=== PATIENT | female | born 1945 | race Caucasian/White ===

== ENCOUNTER 2019-02-26 06:57 | Inpatient (IN) | payer MEDICARE, BC, OTHER ==
[~2019-02-26] VITALS: Ht 162.6 cm; Wt 121.1 kg
[2019-02-26] MEDS ORDERED: ALBUTEROL SULFATE 2.5 MG/0.5 ML INH NEB SOLN INH ONE (07:15)
[2019-02-26] MEDS ORDERED: IPRATROPIUM 0.5MG/ALBUTEROL 2.5MG INH SOL UD 3ML (DUONEB)(J7620) NEB ONE (07:15)
[2019-02-26] MEDS ORDERED: ONDANSETRON 4MG/2ML VIAL (J2405) IV ONE (07:15)
[2019-02-26] MEDS ORDERED: NS 1,000 ML IV ONE ×3 (07:15→09:15)
[2019-02-26] MEDS ORDERED: ANOR1AER INH (07:16)
[2019-02-26] MEDS ORDERED: ARNU1INH3 INH (07:16)
[2019-02-26] MEDS ORDERED: SUCR1TAB56 PO (07:16)
[2019-02-26] MEDS ORDERED: CLOP75TA2 PO (07:16)
[2019-02-26] MEDS ORDERED: ATEN50TA2 PO (07:16)
[2019-02-26] MEDS ORDERED: LOSA100T50 PO (07:16)
[2019-02-26] MEDS ORDERED: MONT10TA2 PO (07:16)
[2019-02-26] MEDS ORDERED: HYDR25TAB PO (07:16)
[2019-02-26] MEDS ORDERED: OMEP-218 PO (07:16)
[2019-02-26] MEDS ORDERED: ROSU10TA6 PO (07:16)
[2019-02-26] MEDS ORDERED: OXYC1TAB23 PO (07:16)
[2019-02-26 07:28] LABS: ABG BASE EXCESS 0.1 (-2.0-2.0); ABG HCO3 23.5 MEQ/L (22.0-26.0); ABG O2 SATURATION 96.2 % (95.0-99.0); ABG PARTIAL PRESSURE CO2 34.6 mmHg (35.0-45.0); ABG PARTIAL PRESSURE O2 87.1 mmHg (75.0-100.0); ABG STANDARD HCO3 24.5 MEQ/L (22.0-26.0); ABG TOTAL CO2 24.5 MEQ/L (23.0-31.0); ABG pH (ARTERIAL) 7.449 UNITS (7.350-7.450)
[2019-02-26] MEDS: fentaNYL 100 MCG/2 ML INJECTION (J3010) IV PRN ×2 (07:50→11:08)
--- NOTE | 2019-02-26 07:50 | REP ---
Portable chest, 07:17 a.m., single AP view with the patient upright: Comparison is 05/30/2014. There is chronic tenting of the right hemidiaphragm compatible with a pleural adhesion. There is minor atelectasis in the left costophrenic angle. The lung miramontes otherwise clear. Cardiac size is enlarged, however there has magnification from portable positioning. The leesa, mediastinum, skeletal structures are unremarkable. Impression: Minor atelectasis in the left costophrenic angle. 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 Cardiomegaly versus magnification from positioning. Electronically Signed by Ousmane Turner MD 02/26/2019 07:42 A
[2019-02-26 08:07] LABS: BASO % 0.2 % (0.0-1.0); HEMATOCRIT 45.4 % (36.0-47.0); HEMOGLOBIN 14.9 g/dl (12.0-15.5); LYMPH % 6.1 % (24.0-44.0); MEAN CORPUSCULAR HEMOGLOBIN 30.7 pg (27.0-33.0); MEAN CORPUSCULAR HGB CONC 32.8 g/dl (32.0-36.5); MEAN CORPUSCULAR VOLUME 93.4 fl (80.0-96.0); MONO # 0.7 10^3/uL (0.0-0.8); MONO % 4.1 % (0.0-5.0); NEUTROPHILS # 14.7 10^3/uL (1.8-7.7); NEUTROPHILS % 88.9 % (36.0-66.0); PLATELET COUNT, AUTOMATED 270 10^3/uL (150-450); RED BLOOD COUNT 4.86 10^6/uL (4.00-5.40); WHITE BLOOD COUNT 16.6 10^3/uL (4.0-10.0)
[2019-02-26 08:18] LABS: INR 1.03; PARTIAL THROMBOPLASTIN TIME 28.1 SECONDS (25.0-38.4); PROTHROMBIN TIME 13.2 SECONDS (11.8-14.0)
[2019-02-26] MEDS ORDERED: SIME125C4 PO (08:29)
[2019-02-26] MEDS ORDERED: ACET-897 PO (08:29)
[2019-02-26 08:30] LABS: ALBUMIN 3.8 GM/DL (3.2-5.2); ALT/SGPT 82 U/L (12-78); BILIRUBIN,TOTAL 3.4 MG/DL (0.2-1.0); CK-MB VALUE MASS 1.2 NG/ML (<3.6); CPK CREATINE PHOSPHOKINASE 49 U/L (26-192); FREE T4 1.23 NG/DL (0.76-1.46); LIPASE 141 U/L (73-393); MB/CK RELATIVE INDEX 2.45 (< OR =4); TOTAL PROTEIN 7.6 GM/DL (6.4-8.2); TROPONIN I < 0.02 NG/ML (< 0.10)
[2019-02-26] MEDS: MONTELUKAST 10 MG TAB PO SCH (09:00)
[2019-02-26] MEDS: ATENOLOL 50 MG TAB PO SCH (09:00)
[2019-02-26] MEDS: hydroCHLOROthiazide 25 MG TAB PO SCH (09:00)
[2019-02-26] MEDS: ROSUVASTATIN 10 MG TAB (CRESTOR) PO SCH (09:00)
[2019-02-26] MEDS: LOSARTAN 50 MG TAB PO SCH (09:00)
[2019-02-26] MEDS ORDERED: NS 700 ML IV ONE (09:15)
[2019-02-26] MEDS ORDERED: metroNIDAZOLE 500 MG in APPROPRIATE DILUENT 1 EA IV ONE (09:15)
[2019-02-26] MEDS ORDERED: CIPROFLOXACIN 400 MG in APPROPRIATE DILUENT 1 EA IV ONE (09:15)
--- NOTE | 2019-02-26 10:03 | REP ---
RIGHT UPPER QUADRANT ULTRASOUND: Real-time sonographic evaluation of the right upper quadrant was performed. Gallbladder is moderately distended. There is dependant mild sludge and possible tiny stones. The patient is tender at that location. There is trace pericholecystic fluid. Common bile duct is dilated and the intrahepatic bile ducts are mildly dilated. Common bile duct measures 11 mm. Liver demonstrates diffuse increased echotexture suggesting fibrofatty infiltration, with mild hepatomegaly, length in the mid clavicular line 19 cm. Pancreas is grossly unremarkable. Right kidney demonstrates no hydronephrosis with normal size 11 cm in length. IMPRESSION :Moderately dilated gallbladder with a small amount of intraluminal sludge and tiny stones. Mild pericholecystic fluid. Patent is tender at that location. In addition there is mild intrahepatic and extrahepatic biliary dilatation. Common bile duct measuring 11 mm. Findings are suspicious for cholecystitis. Diffuse fibrofatty infiltration of the liver with mild hepatomegaly. Electronically Signed by Ousmane Parra MD 03/02/2019 05:22 P
[2019-02-26] MEDS ORDERED: METOCLOPRAMIDE INJ 10MG/2ML VIAL (J2765) IV ONE (10:15)
[2019-02-26] MEDS ORDERED: MORPHINE 4 MG/ML 1ML VIAL/SYRINGE (J2270) IV PRN (11:15)
--- NOTE | 2019-02-26 11:25 | HPEPDOC ---
[facility] Medical History & Physical Date of Admission Feb 26, 2019 Date of Service: Feb 26, 2019 Primary Care Physician: A Attending Physician: CAROL CULVER MD History and Physical Time Service 10:30 AM CHIEF COMPLAINT: Abdominal pain HISTORY OF PRESENT ILLNESS: This is a 73-year-old female who presented with complaints of three-day induration mid left abdominal pain that radiates to the back. At its worst the pain as 10 out of 10 in severity after receiving medications in the ED the pain reduced to 5 out of 10 in severity. The pain is worsened by eating food; she last ate on Friday. Associated symptoms include nausea, non-bloody bilious emesis, and chills. She denies having fevers. The patient has a known history of gallstones and COPD. She had been working with her building cleaning supervisor to optimize her pulmonary status prior to elective surgery but came to day because of acute abdominal pain. PAST MEDICAL/ SURGICAL HISTORY: 1. COPD with chronic hypoxic respiratory failure. She is dependent on 3 L of oxygen at home. 2. History of gallstones and cholecystitis. 3 Status post tubal ligation. 4. Status post lithotripsy. 5. Status post tubal ligation. 6. Hypertension. 7. Left carotid artery stenosis SOCIAL HISTORY: Marital status: . Children: 4 Employment: Former nurse Tobacco use:, Former smoker, quit several years ago FAMILY HISTORY: Nephrolithiasis. Colon cancer ALLERGIES: Please see below. REVIEW OF SYSTEMS: 12 point review of systems negative except as listed in HPI HOME MEDICATIONS: Please see below. PHYSICAL EXAMINATION: VITAL SIGNS temperature 97.8 Fahrenheit, pulse 86, respiratory rate 30, blood pressure 148/68, pulse oximetry 88% on 3 L nasal cannula and later on improved to 92% while still on 3 L nasal cannula. GENERAL APPEARANCE: Obese, mildly anxious, slightly diaphoretic HEENT:. Extraocular movements intact, nasal cannula in place, lips slightly cyanotic. CARDIOVASCULAR: Regular rate and rhythm, no murmurs, rubs or gallops. LUNGS: The patient is able to speak full sentences without stopping to rest, is not using. Sensory muscles. There are Diminished breath sounds bilaterally, ABDOMEN: Abdomen is obese, there is no bruising, the abdomen is tender to palpation in the left knee region, Patterson sign is positive MUSCULOSKELETAL: Range of motion is intact 4 extremities SKIN: Slightly flushed NEUROLOGICAL: CN II-12 grossly intact, speech is not dysarthric. PSYCHIATRIC:, Alert and oriented 3, able to understand and follow commands. LABORATORY DATA: See below. IMAGING: Gallbladder ultrasound: shows a moderately dilated gallbladder with a small amount of intraluminal sludge and tiny stones sonographic Patterson sign is positive. CBD is 11 mm the findings are consistent with cholecystitis. Changes consistent with fatty liver and mild hepatomegaly are also noted. Chest x-ray shows atelectasis in the left costophrenic angle, tenting in the right hemidiaphragm compatible with a peripherally adhesion. There is also possible Cardiomegaly, which may also be due to malpositioning MICROBIOLOGY: Please see below. ASSESSMENT: Mrs. Jane is a 73-year-old female with a past medical history of oxygen dependent COPD, and multiple abdominal surgeries, who will be admitted to PCU for management of sepsis secondary to acute cholecystitis. . PLAN: 1. Sepsis secondary to acute cholecystitis. Sepsis criteria include an elevated WBC count and elevated lactic acid. Sonographic findings and liver function tests findings are consistent with acute cholecystitis. Q-SOFA score = 1 not high risk Plan: Continue with sepsis protocol/bundle including IV fluids, repeat lactic acid and antibiotics, surgery consult for laparoscopic cholecystectomy, nothing by mouth, GI consult for possible preoperative ERCP, follow-up blood cultures, we'll address CODE STATUS soon, after meds and morphine and IV form for pain control, Zofran for nausea 2. COPD with Oxygen-dependent respiratory failure. Plan: Continue supplemental oxygen, postoperatively will have low threshold for consulting pulmonology, continue home meds including 3. Chronic hypertension. Plan: Continue with losartan, hydrochlorothiazide and atenolol pending BMP 4 Carotid stenosis. Plan: hold Plavix DVT prophylaxis SCDs. Disposition pending clinical course Vital Signs Vital Signs Date Time Temp Pulse Resp B/P (MAP) Pulse Ox O2 Delivery O2 Flow Rate FiO2 02/26/19 11:08 18 92 3.0 02/26/19 07:09 02/26/19 06:57 97.8 86 Nasal Cannula Laboratory Data Labs 24H Laboratory Tests 2 02/26/19 07:17: Blood Gas Bicarbonate Standard 24.5, Arterial Blood pH 7.449, Arterial Blood Partial Pressure CO2 34.6L, Arterial Blood Partial Pressure O2 87.1, Arterial Blood Total CO2 24.5, Arterial Blood HCO3 23.5, Arterial Blood Base Excess 0.1, Arterial Blood Oxygen Saturation 96.2 02/26/19 07:41: Immature Granulocyte % (Auto) 0.7, White Blood Count 16.6H, Red Blood Count 4.86, Hemoglobin 14.9, Hematocrit 45.4, Mean Corpuscular Volume 93.4, Mean Corpuscular Hemoglobin 30.7, Mean Corpuscular Hemoglobin Concent 32.8, Red Cell Distribution Width 13.8, Platelet Count 270, Neutrophils (%) (Auto) 88.9H, Lymphocytes (%) (Auto) 6.1L, Monocytes (%) (Auto) 4.1, Eosinophils (%) (Auto) 0.0, Basophils (%) (Auto) 0.2, Neutrophils # (Auto) 14.7H, Lymphocytes # (Auto) 1.0L, Monocytes # (Auto) 0.7, Eosinophils # (Auto) 0.0, Basophils # (Auto) 0.0, Nucleated Red Blood Cells % (auto) 0.0, Prothrombin Time 13.2, Prothromb Time International Ratio 1.03, Activated Partial Thromboplast Time 28.1, Lactic Acid Level 4.4*H, Aspartate Amino Transf (AST/SGOT) 143H, Alanine Aminotransferase (ALT/SGPT) 82H, Alkaline Phosphatase 144H, Total Bilirubin 3.4H, Direct Bilirubin 2.0H, Total Creatine Kinase 49, Creatine Kinase MB 1.2, Creatine Kinase MB Relative Index 2.45, Troponin I < 0.02, Total Protein 7.6, Albumin 3.8, Albumin/Globulin Ratio 1.00, Lipase 141, Thyroid Stimulating Hormone (TSH) 1.620, Free Thyroxine 1.23 02/26/19 07:42: POC Glucose (Misc Panel) 182H, POC Sodium (Misc Panel) 133L, POC Potassium (Misc Panel) 3.6, POC Chloride (Misc Panel) 91L, POC Total CO2 (Misc Panel) 27.0, POC Blood Urea Nitrogen (Misc Panel 13, POC Ionized Calcium (Misc Panel) 4.4L, POC Creatinine (Misc Panel) 0.7, POC Hematocrit (Misc Panel) 46.0 02/26/19 09:18: Urine Color YELLOW, Urine Appearance HAZY, Urine pH 7.0, Urine Specific [place] 1.004, Urine Protein NEGATIVE, Urine Glucose (UA) NEGATIVE, Urine Ketones NEGATIVE, Urine Blood 1+H, Urine Nitrite NEGATIVE, Urine Bilirubin NEGATIVE, Urine Urobilinogen 0.2, Urine Leukocyte Esterase NEGATIVE, Urine WBC (Auto) 2, Urine RBC (Auto) 2, Urine Hyaline Casts (Auto) 0, Urine Bacteria (Auto) 1+H, Urine Squamous Epithelial Cells 1, Urine Mucus (Auto) SMALL, Urine Sperm (Auto) CBC/BMP Laboratory Tests 02/26/19 07:41 Red Blood Count 4.86, Mean Corpuscular Volume 93.4, Mean Corpuscular Hemoglobin 30.7, Mean Corpuscular Hemoglobin Concent 32.8, Red Cell Distribution Width 13.8, Neutrophils (%) (Auto) 88.9 H, Lymphocytes (%) (Auto) 6.1 L, Monocytes (%) (Auto) 4.1, Eosinophils (%) (Auto) 0.0, Basophils (%) (Auto) 0.2, Neutrophils # (Auto) 14.7 H, Lymphocytes # (Auto) 1.0 L, Monocytes # (Auto) 0.7, Eosinophils # (Auto) 0.0, Basophils # (Auto) 0.0 Microbiology Microbiology 02/26/19 Blood Culture, Received Pending 02/26/19 Blood Culture, Received Pending Home Medications Scheduled Atenolol (Atenolol) 50 Mg Tablet, 50 MG PO DAILY Clopidogrel Bisulfate (Clopidogrel) 75 Mg Tablet, 75 MG PO DAILY Fluticasone Furoate (Arnuity Ellipta) 200 Mcg Blst.w.dev, 1 PUFF INH QHS Hydrochlorothiazide (Hydrochlorothiazide) 25 Mg Tablet, 25 MG PO DAILY Losartan Potassium (Losartan Potassium) 100 Mg Tablet, 100 MG PO DAILY Montelukast Sodium (Montelukast Sodium) 10 Mg Tablet, 10 MG PO DAILY Omeprazole (Omeprazole) 20 Mg Capsule.dr, 20 MG PO DAILY Rosuvastatin Calcium (Rosuvastatin Calcium) 10 Mg Tablet, 10 MG PO DAILY Simethicone (Gas-X) 125 Mg Capsule, 250 MG PO QHS Sucralfate (Sucralfate) 1 Gm Tablet, 1 GRAM PO BID Umeclidinium Brm/Vilanterol Tr (Anoro Ellipta 62.5-25 Mcg INH) 1 Each Blst.w.dev, 1 PUFF INH DAILY Scheduled PRN Acetaminophen (Tylenol Extra Strength) 500 Mg Tablet, 500 MG PO QID PRN for PAIN Oxycodone HCl/Acetaminophen (Oxycodone-Acetaminophen 5-325) 1 Each Tablet, 1 TAB PO Q6H PRN for PAIN Allergies Coded Allergies: aspirin (Verified Allergy, Severe, anaphalaxis, 02/26/19) propofol (Verified Allergy, Unknown, 02/26/19) ceftriaxone (Verified Adverse Reaction, Intermediate, gall bladder attack, 02/26/19) A-FIB/CHADSVASC A-FIB History Current/History of A-Fib/PAF?: No Current PO Anticoag Therapy: No Treatment Reason Anticoagulant not given: Recent/upcomin procedure CAROL CULVER MD Feb 26, 2019 11:25
[2019-02-26 11:40] LABS: BLOOD UREA NITROGEN 14 MG/DL (7-18); CALCIUM LEVEL 9.8 MG/DL (8.8-10.2); CARBON DIOXIDE LEVEL 31 MEQ/L (21-32); CHLORIDE LEVEL 95 MEQ/L (98-107); CREATININE FOR GFR 0.94 MG/DL (0.55-1.30); GLOMERULAR FILTRATION RATE > 60.0 (>39); GLUCOSE, FASTING 178 MG/DL (70-100); PHOSPHORUS LEVEL 3.5 MG/DL (2.5-4.9); POTASSIUM SERUM 3.8 MEQ/L (3.5-5.1); SODIUM LEVEL 135 MEQ/L (136-145)
[2019-02-26] MEDS ORDERED: ACETAMINOPHEN 650 MG SUPP PR PRN (12:00)
[2019-02-26] MEDS ORDERED: NS 1,000 ML IV SCH (12:00)
[2019-02-26 12:24] VITALS: BP 163/74
[2019-02-26] MEDS ORDERED: ACETAMINOPHEN *IV* 1,000 MG in APPROPRIATE DILUENT 1 EA IV ONE (13:00)
[2019-02-26 13:49] VITALS: BP 153/73
[2019-02-26] MEDS: hydrALAZINE INJ 20 MG/ML VIAL IV SCH ×3 (13:51→21:53)
[2019-02-26] MEDS: NS 3,500 ML IV SCH ×2 (13:51→20:36)
[2019-02-26] MEDS ORDERED: HEPARIN SOD (PORCINE) 5000 UNITS/ML VIAL SC SCH (14:00)
[2019-02-26 16:00] VITALS: BP 141/63
[2019-02-26 20:00] VITALS: BP 129/60
[2019-02-26] MEDS: CIPROFLOXACIN 400 MG in APPROPRIATE DILUENT 1 EA IV SCH (20:37)
[2019-02-26] MEDS: ONDANSETRON 4MG/2ML VIAL (J2405) IV PRN (21:53)
[2019-02-26 22:00] VITALS: BP 139/79
[2019-02-27] VITALS (14 sets, daily range): BP systolic 114–149; BP diastolic 59–83
[2019-02-27] MEDS: fentaNYL 100 MCG/2 ML INJECTION (J3010) IV PRN ×2 (00:34→16:03)
[2019-02-27] MEDS: NS 3,500 ML IV SCH (02:21)
[2019-02-27] MEDS: hydrALAZINE INJ 20 MG/ML VIAL IV SCH ×2 (04:00→09:44)
[2019-02-27 04:47] LABS: HEMATOCRIT 39.5 % (36.0-47.0); MEAN CORPUSCULAR HEMOGLOBIN 30.4 pg (27.0-33.0); MEAN CORPUSCULAR HGB CONC 32.9 g/dl (32.0-36.5); MEAN CORPUSCULAR VOLUME 92.3 fl (80.0-96.0); PLATELET COUNT, AUTOMATED 225 10^3/uL (150-450); RED BLOOD COUNT 4.28 10^6/uL (4.00-5.40); WHITE BLOOD COUNT 16.1 10^3/uL (4.0-10.0)
[2019-02-27 05:11] LABS: ALT/SGPT 81 U/L (12-78); BILIRUBIN,TOTAL 3.5 MG/DL (0.2-1.0); BLOOD UREA NITROGEN 10 MG/DL (7-18); CALCIUM LEVEL 8.4 MG/DL (8.8-10.2); CARBON DIOXIDE LEVEL 24 MEQ/L (21-32); CHLORIDE LEVEL 104 MEQ/L (98-107); GLOMERULAR FILTRATION RATE > 60.0 (>39); GLUCOSE, FASTING 121 MG/DL (70-100); POTASSIUM SERUM 3.6 MEQ/L (3.5-5.1); SODIUM LEVEL 137 MEQ/L (136-145); TOTAL PROTEIN 6.9 GM/DL (6.4-8.2)
[2019-02-27] MEDS: ATENOLOL 50 MG TAB PO SCH (09:00)
[2019-02-27] MEDS ORDERED: NS 1,000 ML IV SCH (09:00)
[2019-02-27] MEDS: LOSARTAN 50 MG TAB PO SCH (09:00)
[2019-02-27] MEDS: MONTELUKAST 10 MG TAB PO SCH (09:00)
[2019-02-27] MEDS: ROSUVASTATIN 10 MG TAB (CRESTOR) PO SCH (09:00)
[2019-02-27] MEDS: hydroCHLOROthiazide 25 MG TAB PO SCH (09:00)
--- NOTE | 2019-02-27 09:27 | ECGEPIP ---
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
[2019-02-27] MEDS: CIPROFLOXACIN 400 MG in APPROPRIATE DILUENT 1 EA IV SCH ×2 (09:44→21:57)
[2019-02-27] MEDS: ONDANSETRON 4MG/2ML VIAL (J2405) IV PRN (09:44)
[2019-02-27] MEDS ORDERED: FUROSEMIDE 20 MG/2 ML VIAL (J1940) IV ONE (10:00)
[2019-02-27] MEDS ORDERED: FUROSEMIDE 40 MG/4 ML VIAL (J1940) IV ONE (10:00)
[2019-02-27 11:41] LABS: CPK CREATINE PHOSPHOKINASE 55 U/L (26-192); MB/CK RELATIVE INDEX 3.64 (< OR =4); TROPONIN I 0.36 NG/ML (< 0.10)
--- NOTE | 2019-02-27 13:30 | CR ---
DATE OF CONSULTATION: 02/27/2019 CHIEF COMPLAINT: Abdominal pain. HISTORY OF PRESENT ILLNESS: Ms. Jane is a 73-year female with a past medical history of chronic obstructive pulmonary disease (COPD) with chronic hypoxemic respiratory failure, obstructive sleep apnea (VINNY) not on C-PAP, hypertension, and left carotid artery stenosis who presented with complaints of abdominal pain for the past few days associated with nausea and some vomiting, nonbloody and nonbilious, and chills. The patient reports the pain is worsened by eating food. She denied noticing any fevers at home. She denied any chest pain, any increased shortness of breath. No wheezing. She does have a chronic cough which she reports is unchanged currently. The patient has a previous history of gallstones with cholecystitis and a previous admission for it. She was following up with surgery as an outpatient for an outpatient elective cholecystectomy. The patient follows with pulmonary at our clinic with Dr. Ariza. At a previous visit, she had pulmonary function testing done which showed some nonspecific airflow limitation with mild reduction in FEV-1 and severe reduction in her diffusing capacity. She was optimized from a pulmonary standpoint to proceed with the procedure. Since her admission, the patient has been started on antibiotics with ciprofloxacin. She has received IV pain medication as well as Zofran for her nausea. The patient was also given IV fluids and her hypertensive and oral medications were on hold as she is strict nothing by mouth (n.p.o.). The patient's blood pressure has been elevated and she has been getting hydralazine IV every 6 hours. She reports that she continues to have the abdominal pain more in the right upper quadrant as well as some nausea. She also noted increasing lower extremity edema for which she usually takes hydrochlorothiazide as well as Lasix as needed occasionally for the edema. PAST MEDICAL HISTORY/PAST SURGICAL HISTORY: COPD with chronic hypoxemic respiratory failure on 3 liters nasal cannula. morbid obesity. VINNY not on C-PAP. history of tubal ligation. history of nephrolithiasis status post lithotripsy. Hypertension. Left carotid artery stenosis. HOME MEDICATIONS: - atenolol - Plavix - Arnuity - hydrochlorothiazide - losartan - Singulair - omeprazole - rosuvastatin - sucralfate - Anoro - Percocet p.r.n. - Tylenol p.r.n. ALLERGIES: - ASPIRIN - PROPOFOL - CEFTRIAXONE SOCIAL HISTORY: The patient is a retired nurse. She is a former smoker, quit several years ago. FAMILY HISTORY: History of colon cancer and nephrolithiasis. PHYSICAL EXAMINATION: Temperature 99.2, pulse 91, respirations 20, blood pressure 149/83, and O2 sat 92% on 3 liters of nasal cannula. General: The patient is a morbidly obese female who is lying in bed in no acute respiratory distress. She is not using any accessory muscles for respirations. HEENT: Normocephalic, atraumatic. Moist mucous membranes. Neck is supple. Trachea is midline. Unable to appreciate jugular venous distention (JVD) due to body habitus. Cardiovascular: Regular rate and rhythm. Normal S1 and S2, distant heart sounds. Unable appreciate any murmurs. Pulmonary: Decreased breath sounds bilaterally with some rare crackles at the bases. No wheezes or rhonchi. Abdomen is obese, soft, Tender to palpation in the right upper quadrant. Lower Extremities: There is some mild pitting lower extremity edema bilaterally. LABORATORY DATA: WBC 16.1, hemoglobin 13.0, platelets 225. Chemistry: Sodium was 137, potassium 3.6, chloride is 104, bicarb 24, BUN 10, creatinine 0.70, glucose is 121. Lactic acid on admission was 4.4, repeat trended down to 1.3 today. Total bili elevated at 3.5. AST and ALT are elevated, but trending down at 63 and 81 respectively. Alkaline phosphatase is 138. Initial troponin was negative. Repeat troponin was 0.36. ABG on admission - pH 7.449, pCO2 of 34.6 and pO2 of 87.1. IMAGES: Chest x-ray on admission showed chronic tenting of the right diaphragm and some atelectasis at the bases with possible mild pulmonary vascular congestion. Gallbladder ultrasound showed moderate dilation of the gallbladder with some sludge and small stones. There is some pericholecystic fluid and some mild intrahepatic and extrahepatic biliary ductal dilation. The common bile duct is also 1.1 cm. There is some fatty liver infiltration. ASSESSMENT/PLAN: Ms. Jane is a 73-year-old female with a past medical history of COPD with chronic hypoxemic respiratory failure on 3 liters nasal cannula, VINNY not on C-PAP, history of hypertension, history of left carotid artery stenosis, and history of cholecystitis in the past who presents with abdominal pain, nausea and vomiting. The patient was found to have acute choledocholithiasis and sepsis secondary to her choledocholithiasis. The patient has been evaluated by GI and surgery with a plan for ERCP with a sphincterotomy and then once her sepsis and liver functions improve with likely cholecystectomy. For her history of COPD, the patient is on triple inhaler maintenance therapy with Anoro and Arnuity. She is also on Singulair. Her last pulmonary function testing appeared unchanged from previous with some mild nonspecific airflow limitation and severe impairment in her diffusing capacity. The patient is currently at her baseline oxygen saturation and she denies any increased wheezing. No increased chest pain or shortness of breath. From a pulmonary standpoint, she is optimized for her surgical procedure. She does have a history of VINNY however and has not been on C-PAP. Given her morbid obesity and her chronic hypoxemia, suspect some of it is also due to untreated VINNY possibly OHS. - For general anesthesia and intubation, would extubate the patient when she is fully awake and alert. Can also consider extubating her to C-PAP or BiPap. - The patient has been receiving IV fluids as she is n.p.o. and she has been having her diuretics on hold and she notes increased lower extremity edema as well as being hypertensive. Will give her a dose of Lasix 20 mg IV and will place a [place] for more accurate measurement of her ins and outs. - The patient EKG was noted to have some ST depressions which appear chronic. However given history of her carotid artery stenosis as well as on previous CTs evidence of coronary artery calcifications, we repeated her troponins, which did show evidence of some mild demand ischemia, likely in the setting of her sepsis and possibly also with her fluid overload. The patient's Plavix has been on hold for her procedure and she has a reported allergy to aspirin. - Cardiology has been consulted for preoperative clearance. Will follow up their recommendations. - Continue antibiotics as per the primary team. - will restart her home inhalers while inpatient with Advair and Spiriva with albuterol p.r.n. as needed. DVT prophylaxis with heparin. Full code. MTDD
[2019-02-27] MEDS: ALBUTEROL SULFATE 2.5 MG/0.5 ML INH NEB SOLN NEB SCH ×3 (13:46→20:00)
[2019-02-27] MEDS: LIDOCAINE 5% (LIDODERM) PATCH TD SCH (13:53)
[2019-02-27] MEDS: NYSTATIN 100,000 UNITS/GM TOPICAL PWD 15 GM TOP SCH (13:54)
[2019-02-27] MEDS: METOPROLOL 5 MG/5 ML VIAL IV SCH ×2 (13:54→21:02)
[2019-02-27] MEDS: ADVAIR HFA 230/21MCG INHALER INH SCH ×2 (13:56→20:00)
[2019-02-27] MEDS: TIOTROPIUM INHALER/CAPSULE (SPIRIVA) INH SCH (13:57)
--- NOTE | 2019-02-27 14:20 | ECGEPIP ---
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
--- NOTE | 2019-02-27 15:00 | CR ---
DATE OF CONSULTATION: 02/27/2019 REFERRING PHYSICIAN: Dr. Espinoza INDICATION: Preoperative clearance for emergency ERCP. HISTORY OF PRESENT ILLNESS: Mrs. Guzmán is previously unknown to me. She is a pleasant 73-year-old, morbidly obese female, who has history of chronic obstructive pulmonary disease (COPD) and has been oxygen dependent for several years. She presented to [facility] with cholangitis and was found to have obstructed biliary system. She continues to be quite symptomatic and there was a plan to pursue ERCP or percutaneous drainage of her gallbladder. I was asked to see her for cardiac clearance because her cardiac enzymes were marginally elevated and there were precordial ST-segment depressions on her ECG. At bedside the patient tells me that she is still very uncomfortable. She started having symptoms a little more than 48 hours ago and then her condition improved slightly with conservative management but as of today she deteriorated further. She admits having rather diffuse abdominal discomfort that is by far the most severe in the right upper quadrant but denies any chest discomfort. She tells me that her shortness of breath is not much different compared to her baseline. She denies any history of coronary artery disease. She recalls that she had stress test many years ago but has not had any cardiac evaluation since. At her baseline she is ambulating around the house, does some light housework including cooking and he is able to walk to her car which is about 50 feet. She is limited by dyspnea. She denies any history of chest discomfort or congestive heart failure. PAST MEDICAL HISTORY: 1. Morbid obesity. 2. History of chronic obstructive pulmonary artery disease (COPD), quit smoking in 2002. She is dependent on 3 liters of oxygen by nasal cannula continuously. 3. Hypertension. 4. History of left carotid artery stenosis. She has been followed by vascular surgeon from [place] and reports stenosis of approximately 60% degree for more than a decade. 5. Recurrent cholecystitis. SURGICAL HISTORY: Positive for lithotripsy and tubal ligation. SOCIAL HISTORY: The patient is . She is a mother of four children. Is a retired nurse. She used to smoke but quit in 2002. She denies excessive alcohol use. FAMILY HISTORY: Positive for colon cancer and nephrolithiasis. ALLERGIES: She reports allergies to ASPIRIN that causes anaphylaxis, CEFTRIAXONE and PROPOFOL. Based on my history I am not convinced that the allergy to propofol is real. REVIEW OF SYSTEMS: She does admit to chills, fever, nausea, vomiting, abdominal pain. She denies any chest pain, palpitations, syncope and near-syncope, history of stroke, history of excessive bleeding complications. The rest of review of systems as per history of present illness or otherwise negative. PHYSICAL EXAMINATION: Mrs. Guzmán is a morbidly obese pleasant white female. She appears to be in no distress currently in intensive care unit (ICU) bed in completely horizontal position. Blood pressure last documented was 115/80, heart rate in 90s, sinus rhythm, currently afebrile. Saturation 92-94% on 3 liters of oxygen by nasal cannula. Her weight is documented as 123 kg. Her jugular venous pulse (JVP) does not look high by my physical examination, I do not appreciate carotid bruit. Lungs are clear to auscultation bilaterally without wheezing, crackles or rhonchi. Heart: Exam reveals somewhat difficult to appreciate precordial impulse due to her body habitus but her heart rate is regular. I do not appreciate any murmur, gallop or rub. Abdomen is diffusely tender but soft. No distinct guarding other than mildly in right upper quadrant. Bowel sounds are decreased. Extremities are free of significant edema. Peripheral pulses are easily palpable on both ankles. Neurologically she is intact. LABORATORY: Basic metabolic panel as of early this morning was normal but for glucose 121, lactic acid on admission was elevated 4.4, but has normalized by this morning, bilirubin 3.4 on admission is 3.5 this morning, AST 63, ALT 181, alkaline phosphatase 138, CK and CK-MB have been consistently negative but troponin that was yesterday 0.02 is 0.36 as of this morning. INR was 1.0 and CBC is normal but for WBC count 16.1. Urinalysis is 1+ positive for blood. Chest x-ray is portable study somewhat limited by her size but besides questionable cardiomegaly and some mildly elevated right hemidiaphragm I do not appreciate any convincing congestive heart failure or infiltrate. ECG reveals presence of sinus rhythm, is suggestive of LVH and there are occasional PVCs and ST-segment depressions. The patient brought old ECGs from her prior hospitalization in outside hospital and the ST-segment depressions were present already then. ASSESSMENT AND PLAN: Mrs. Guzmán is a 73-year-old female who comes with biliary sepsis and has mildly elevated troponin and nonspecific repolarization abnormalities on ECG without having chest discomfort. I do not doubt that she has coronary artery disease, she does have multiple risk factors including peripheral vascular disease, but in this setting I think she is better off proceeding with ERCP because otherwise she has high risk of difficult to treat sepsis and resulting potential complications including . Her blood pressure is now much improved. She has been off her outpatient medications for several days and received single dose of IV hydralazine earlier today which was a very high dose of 25 mg. I think it would be more appropriate to give her low-dose beta blockers either metoprolol which I ordered or potentially even labetalol if she is very hypertensive and we can use additional hydralazine only as needed. She did receive single dose of furosemide earlier today and has had very good diuretic response. Unfortunately I do not believe that she can receive aspirin because her description of allergy is suggestive of anaphylaxis precluding its use. Also considering the need for the procedure she is not a good candidate for Plavix on Brilinta. Hopefully she will tolerate the procedure well and we will continue monitoring in intensive care postoperatively. I had a discussion with her and her and two daughters present at bedside explaining that even though there are risks to the procedure it is my opinion that not proceeding with the procedure carries actually higher risk. I also spoke with Dr. Ortiz and Dr. Sweet. JUSTIN
--- NOTE | 2019-02-27 15:19 | IPNPDOC ---
Subjective Date Seen The patient was seen on 02/27/19. Time of service 9:45 AM Subjective Chief Complaint/HPI The patient reports that her abdominal pain is still pretty severe. She has been nothing by mouth after midnight for possible surgery today. Per discussion with nursing staff. The patient has been complaining of back pain Objective Physical Examination Other physical findings GENERAL APPEARANCE: well nourished, well developed, anxious HEENT: Extraocular movements intact, nasal cannula in place CARDIOVASCULAR: Regular rate and rhythm, no murmurs, rubs or gallops. LUNGS: The patient is able to speak full sentences without stopping to rest, is not using. Sensory muscles. There are Diminished breath sounds bilaterally, ABDOMEN: Abdomen is obese, there is no bruising, Patterson sign is positive MUSCULOSKELETAL: Range of motion is intact 4 extremities SKIN: Slightly flushed NEUROLOGICAL: CN II-12 grossly intact, speech is not dysarthric. PSYCHIATRIC: Alert and oriented 3, able to understand and follow commands. Assessment /Plan Assessment 1. Sepsis secondary to acute cholecystitis/ choledocolithasis - improving -We completed the sepsis protocol -Lactic acid has trended down Plan: nothing by mouth pending preoperative ERCP and laparoscopic cholecystectomy possibly today, continue with IV fluids, fentanyl, IV Zofran, and ciprofloxacin. 2. COPD with Oxygen-dependent respiratory failure. Dependent on 3 L oxygen at home Plan: Continue supplemental oxygen, appreciate pulmonary's input. 3. Elevated troponins, likely secondary to sepsis - troponins and EKG reports reviewed. Plan consult cardiology for perioperative evaluation. 5. Chronic hypertension Plan: Home meds on hold. IV hydralazine when necessary has been ordered. 6Carotid stenosis. Plan: hold Plavix DVT prophylaxis with SCDs. Disposition pending clinical course. Plan/VTE VTE Prophylaxis Ordered?: No VTE Exclusion Mechanical Proph: Other (scheduled for surgery) VS, I&O, 24H, Fishbone Vital Signs/I&O Vital Signs Date Time Temp Pulse Resp B/P (MAP) Pulse Ox O2 Delivery O2 Flow Rate FiO2 02/27/19 13:54 112 114/59 02/27/19 08:00 99.2 20 92 Nasal Cannula 3.0 I&O- Last 24 Hours up to 6 AM 02/27/19 06:00 Intake Total 4320 ml Output Total 1475 ml Balance 2845 ml Laboratory Data 24H LABS Laboratory Tests 2 02/26/19 17:48: Bedside Glucose (Misc Panel) 142H 02/27/19 04:15: Nucleated Red Blood Cells % (auto) 0.0, Anion Gap 9, Glomerular Filtration Rate > 60.0, Lactic Acid Level 1.3, Blood Urea Nitrogen 10, Creatinine 0.70, Sodium Level 137, Potassium Level 3.6, Chloride Level 104, Carbon Dioxide Level 24, Calcium Level 8.4L, Aspartate Amino Transf (AST/SGOT) 63H, Alanine Aminotransferase (ALT/SGPT) 81H, Total Creatine Kinase 55, Alkaline Phosphatase 138H, Total Bilirubin 3.5H, Total Protein 6.9, Albumin 3.0#L, Creatine Kinase MB 2.0, Creatine Kinase MB Relative Index 3.64, Troponin I 0.36#H, Albumin/Globulin Ratio 0.77L CBC/BMP Laboratory Tests 02/27/19 04:15 Red Blood Count 4.28, Mean Corpuscular Volume 92.3, Mean Corpuscular Hemoglobin 30.4, Mean Corpuscular Hemoglobin Concent 32.9, Red Cell Distribution Width 14.3, Calcium Level 8.4 L, Aspartate Amino Transf (AST/SGOT) 63 H, Alanine Aminotransferase (ALT/SGPT) 81 H, Total Creatine Kinase 55, Alkaline Phosphatase 138 H, Total Bilirubin 3.5 H, Total Protein 6.9, Albumin 3.0 #L Microbiology Microbiology 02/26/19 Blood Culture - Preliminary, Resulted No growth after 24 hours . All specim... 02/26/19 Blood Culture - Preliminary, Resulted No growth after 24 hours . All specim... CAROL CULVER MD Feb 27, 2019 15:19
[2019-02-27] MEDS ORDERED: ISOVUE-300 61% 50ML VIAL (Q9967) As Ordered ONE (19:06)
[2019-02-27] MEDS ORDERED: fentaNYL 100 MCG/2 ML INJECTION (J3010) As Ordered ONE (20:37)
[2019-02-27] MEDS ORDERED: dexameTHASONE 4 MG/ML 1ML VIAL (J1100) As Ordered ONE (20:37)
[2019-02-27] MEDS ORDERED: MIDAZOLAM INJ 2 MG/2 ML VIAL (J2250) As Ordered ONE (20:37)
[2019-02-27] MEDS ORDERED: LIDOCAINE 2% INJ 100 MG/5 ML SDV (FOR ANES.) As Ordered ONE (20:37)
[2019-02-27] MEDS ORDERED: PHENYLephrine HCL 500 MCG/5 ML (100MCG/ML) SYRINGE (J2370) As Ordered ONE (20:37)
[2019-02-27] MEDS ORDERED: ROCURONIUM BROMIDE 50 MG/5 ML VIAL As Ordered ONE (20:37)
[2019-02-27] MEDS ORDERED: ETOMIDATE INJ 20MG/10ML VIAL As Ordered ONE (20:37)
[2019-02-27] MEDS ORDERED: SUGAMMADEX SODIUM 500 MG/5 ML VIAL (BRIDION) As Ordered ONE (20:37)
[2019-02-27] MEDS ORDERED: ONDANSETRON 4MG/2ML VIAL (J2405) As Ordered ONE ×2 (20:37→21:03)
[2019-02-27] MEDS ORDERED: fentaNYL 100 MCG/2 ML INJECTION (J3010) IV PRN (20:45)
[2019-02-27] MEDS ORDERED: MORPHINE 10 MG/ML 1ML VIAL (J2270) IV PRN (20:45)
[2019-02-27] MEDS ORDERED: PERCOCET 5MG/325MG TAB PO PRN (20:45)
[2019-02-27] MEDS ORDERED: ONDANSETRON 4MG/2ML VIAL (J2405) IV PRN (20:45)
[2019-02-27] MEDS ORDERED: LR 1,000 ML IV SCH (20:45)
[2019-02-27] MEDS ORDERED: ACETAMINOPHEN 1000MG 100ML IV BTL (OFIRMEV) (J0131 PER 10MG) As Ordered ONE (20:52)
--- NOTE | 2019-02-27 20:59 | ROOR ---
Patient Name: Trena Guzmán Procedure Date: 02/27/2019 7:03 PM Date of : 1945 Age: 73 Room: Main OR Note Status: Finalized Procedure: ERCP + Papillotomy + Balloon Sweep + Stent Indications: Abdominal pain of suspected biliary origin, Biliary dilation on Ultrasound, Elevated liver enzymes Providers: Jp Sweet MD Referring MD: Juju Espinoza Md Requesting Provider: Medicines: General Anesthesia Complications: No immediate complications. Procedure: Pre-Anesthesia Assessment: - The heart rate, respiratory rate, oxygen saturations, blood pressure, adequacy of pulmonary ventilation, and response to care were monitored throughout the procedure. The Duodenoscope was introduced through the mouth, and advanced to the duodenum and used to inject contrast into the bile duct. The ERCP was accomplished without difficulty. The patient tolerated the procedure well. Findings: The upper GI tract was traversed under direct vision without detailed examination. The major papilla was normal. The bile duct was deeply cannulated with the short-nosed traction sphincterotome. Contrast was injected. I personally interpreted the bile duct images. Ductal flow of contrast was adequate. Image quality was adequate. Contrast extended to the entire biliary tree. The lower third of the main bile duct and middle third of the main bile duct contained filling defect(s) thought to be a stone and sludge. Choledocholithiasis was found in a nondilated duct. A short 0.035 inch Soft Jagwire was passed into the biliary tree. Biliary sphincterotomy was made with a monofilament traction (standard) sphincterotome using ERBE electrocautery. There was no post-sphincterotomy bleeding. The biliary tree was swept with a 12 mm balloon starting at the bifurcation. Sludge was swept from the duct. All stones were removed. One 10 Fr by 7 cm plastic stent with a single external flap and a single internal flap was placed into the common bile duct. Bile flowed through the stent. The stent was in good position. Impression: - A filling defect consistent with a stone and sludge was seen on the cholangiogram. - Choledocholithiasis was found. Complete removal was accomplished by biliary sphincterotomy and balloon extraction. - A biliary sphincterotomy was performed. - The biliary tree was swept. - One plastic stent was placed into the common bile duct. - The examination was otherwise normal. Recommendation: - Avoid aspirin and nonsteroidal anti-inflammatory medicines for 2 weeks. - Continue present medications. - [facility]. - Watch for pancreatitis, bleeding, perforation, and cholangitis. - The findings and recommendations were discussed with the patient's family. - The findings and recommendations were discussed with the surgeon. Jp Sweet MD Jp Sweet MD 02/27/2019 8:58:31 PM Electronically signed by Jp Sweet MD Number of Addenda: 0 Note Initiated On: 02/27/2019 7:03 PM Estimated Blood Loss: Estimated blood loss: none.
[2019-02-27] MEDS ORDERED: ACETAMINOPHEN *IV* 1,000 MG in APPROPRIATE DILUENT 1 EA IV ONE (21:00)
[2019-02-27] MEDS ORDERED: METOPROLOL 5 MG/5 ML VIAL As Ordered ONE (21:02)
[2019-02-27] MEDS ORDERED: diphenhydrAMINE INJ 50MG/ML VIAL (J1200) IV ONE (22:45)
[2019-02-27 22:48] LABS: MB/CK RELATIVE INDEX 5.08 (< OR =4); TROPONIN I 0.66 NG/ML (< 0.10)
[2019-02-27] MEDS: **NOTE PATIENT COMMENT** MISC XX SCH (23:00)
[2019-02-28] VITALS (10 sets, daily range): BP systolic 131–145; BP diastolic 60–82
[2019-02-28] MEDS: METOPROLOL 5 MG/5 ML VIAL IV SCH ×2 (02:52→09:16)
[2019-02-28 03:52] LABS: BASO % 0.1 % (0.0-1.0); HEMATOCRIT 36.2 % (36.0-47.0); HEMOGLOBIN 12.2 g/dl (12.0-15.5); LYMPH # 0.8 10^3/uL (1.5-4.5); LYMPH % 4.2 % (24.0-44.0); MEAN CORPUSCULAR HEMOGLOBIN 30.4 pg (27.0-33.0); MEAN CORPUSCULAR HGB CONC 33.7 g/dl (32.0-36.5); MEAN CORPUSCULAR VOLUME 90.3 fl (80.0-96.0); MONO # 0.7 10^3/uL (0.0-0.8); MONO % 3.5 % (0.0-5.0); NEUTROPHILS # 18.2 10^3/uL (1.8-7.7); NEUTROPHILS % 91.1 % (36.0-66.0); PLATELET COUNT, AUTOMATED 215 10^3/uL (150-450); RED BLOOD COUNT 4.01 10^6/uL (4.00-5.40); WHITE BLOOD COUNT 19.9 10^3/uL (4.0-10.0)
[2019-02-28 04:13] LABS: BLOOD UREA NITROGEN 14 MG/DL (7-18); CALCIUM LEVEL 8.6 MG/DL (8.8-10.2); CARBON DIOXIDE LEVEL 27 MEQ/L (21-32); CHLORIDE LEVEL 102 MEQ/L (98-107); CREATININE FOR GFR 0.75 MG/DL (0.55-1.30); GLOMERULAR FILTRATION RATE > 60.0 (>39); GLUCOSE, FASTING 139 MG/DL (70-100); POTASSIUM SERUM 3.3 MEQ/L (3.5-5.1); SODIUM LEVEL 137 MEQ/L (136-145)
[2019-02-28] MEDS: ALBUTEROL SULFATE 2.5 MG/0.5 ML INH NEB SOLN NEB SCH ×4 (08:00→20:00)
[2019-02-28] MEDS: TIOTROPIUM INHALER/CAPSULE (SPIRIVA) INH SCH (08:26)
[2019-02-28] MEDS: ADVAIR HFA 230/21MCG INHALER INH SCH ×2 (08:26→20:35)
[2019-02-28] MEDS: LIDOCAINE 5% (LIDODERM) PATCH TD SCH (09:16)
[2019-02-28] MEDS: NYSTATIN 100,000 UNITS/GM TOPICAL PWD 15 GM TOP SCH (09:17)
[2019-02-28 09:30] LABS: ALBUMIN 2.8 GM/DL (3.2-5.2); ALT/SGPT 47 U/L (12-78); BILIRUBIN,TOTAL 1.7 MG/DL (0.2-1.0); BLOOD UREA NITROGEN 16 MG/DL (7-18); CALCIUM LEVEL 8.8 MG/DL (8.8-10.2); CARBON DIOXIDE LEVEL 28 MEQ/L (21-32); CHLORIDE LEVEL 102 MEQ/L (98-107); CREATININE FOR GFR 0.82 MG/DL (0.55-1.30); GLOMERULAR FILTRATION RATE > 60.0 (>39); GLUCOSE, FASTING 132 MG/DL (70-100); POTASSIUM SERUM 3.3 MEQ/L (3.5-5.1); SODIUM LEVEL 138 MEQ/L (136-145); TOTAL PROTEIN 7.3 GM/DL (6.4-8.2)
--- NOTE | 2019-02-28 09:52 | IPNPDOC ---
Text Note Date of Service The patient was seen on 02/27/19. NOTE No acute events overnight. She is complaining of mid back pains, and abd pains still. No improvement in her labs overnight, but her vitals are all stable. Denies nausea, emesis, or fevers. VSSAF NAD abd - soft, obese, TTP RUQ without rebound or guarding labs - see below, slight improvement in AST and ALT, but the bilirubin remains elevated A) 73y/o female with hyperbilirubinemia and likely choledocholithiasis with cholecystitis COPD requiring home O2 P) NPO I have discussed with Pulmonary, and GI about doing an ERCP. She is hesitant to have two intubations, but I explained to her that the ideal situation is to have the ERCP completed, followed by carol calle either in 24 hours, or preferably in 2 weeks after the inflammation subsides. Pulmonary feels that her respiratory status is stable enough to tolerate two procedures, and GI is agreeable to do the ERCP today. After a lengthy discussion, she is also in agreement to have the ERCP completed today. I will follow up with her after to see how she is feeling. Sony Eddy DO VS,Fishbone, I+O VS, Fishbone, I+O Laboratory Tests 02/28/19 03:29 Red Blood Count 4.01, Mean Corpuscular Volume 90.3, Mean Corpuscular Hemoglobin 30.4, Mean Corpuscular Hemoglobin Concent 33.7, Red Cell Distribution Width 14.3, Neutrophils (%) (Auto) 91.1 H, Lymphocytes (%) (Auto) 4.2 L, Monocytes (%) (Auto) 3.5, Eosinophils (%) (Auto) 0.0, Basophils (%) (Auto) 0.1, Neutrophils # (Auto) 18.2 H, Lymphocytes # (Auto) 0.8 L, Monocytes # (Auto) 0.7, Eosinophils # (Auto) 0.0, Basophils # (Auto) 0.0, Calcium Level 8.6 L 02/28/19 08:51 Calcium Level 8.8, Aspartate Amino Transf (AST/SGOT) 22, Alanine Aminotransferase (ALT/SGPT) 47, Alkaline Phosphatase 135 H, Total Bilirubin 1.7 #H, Total Protein 7.3, Albumin 2.8 L Vital Signs Date Time Temp Pulse Resp B/P (MAP) Pulse Ox O2 Delivery O2 Flow Rate FiO2 02/28/19 09:16 95 144/80 02/28/19 07:41 3.0 02/28/19 07:26 98.3 20 92 Nasal Cannula I&O- Last 24 Hours up to 6 AM 02/28/19 06:00 Intake Total 1750 ml Output Total 3450 ml Balance -1700 ml LISSA EDDY DO Feb 28, 2019 09:52
--- NOTE | 2019-02-28 09:55 | IPNPDOC ---
Text Note Date of Service The patient was seen on 02/28/19. NOTE No acute events overnight. No complaints today. Denies nausea, emesis, pain, or fevers. All of her and and back pains have resolved. VSSAF NAD abd - soft, obese, NT, ND labs - see below, LFTs pending A) 73y/o female with hyperbilirubinemia and likely choledocholithiasis with cholecystitis POD#1 s/p ERCP with stent placement COPD requiring home O2 P) followup with labs reg low fat diet will plan to dc once labs are stable and schedule elective lap alva with Dr. Rock If the labs do not improve, then she may still need lap alva prior to discharge will follow Sony Eddy DO VS,Rusty, I+O VS, Rusty, I+O Laboratory Tests 02/28/19 03:29 Red Blood Count 4.01, Mean Corpuscular Volume 90.3, Mean Corpuscular Hemoglobin 30.4, Mean Corpuscular Hemoglobin Concent 33.7, Red Cell Distribution Width 14.3, Neutrophils (%) (Auto) 91.1 H, Lymphocytes (%) (Auto) 4.2 L, Monocytes (%) (Auto) 3.5, Eosinophils (%) (Auto) 0.0, Basophils (%) (Auto) 0.1, Neutrophils # (Auto) 18.2 H, Lymphocytes # (Auto) 0.8 L, Monocytes # (Auto) 0.7, Eosinophils # (Auto) 0.0, Basophils # (Auto) 0.0, Calcium Level 8.6 L 02/28/19 08:51 Calcium Level 8.8, Aspartate Amino Transf (AST/SGOT) 22, Alanine Aminotransferase (ALT/SGPT) 47, Alkaline Phosphatase 135 H, Total Bilirubin 1.7 #H, Total Protein 7.3, Albumin 2.8 L Vital Signs Date Time Temp Pulse Resp B/P (MAP) Pulse Ox O2 Delivery O2 Flow Rate FiO2 02/28/19 09:16 95 144/80 02/28/19 07:41 3.0 02/28/19 07:26 98.3 20 92 Nasal Cannula I&O- Last 24 Hours up to 6 AM 02/28/19 06:00 Intake Total 1750 ml Output Total 3450 ml Balance -1700 ml LISSA EDDY DO Feb 28, 2019 09:55
[2019-02-28 10:51] LABS: CPK CREATINE PHOSPHOKINASE 48 U/L (26-192); LIPASE 69 U/L (73-393); MB/CK RELATIVE INDEX 4.17 (< OR =4); TROPONIN I 0.44 NG/ML (< 0.10)
[2019-02-28] MEDS: PIPERACILLIN/TAZOBACTAM SOD 3.375 GM in D5W MINI-BAG PLUS 50 ML IV SCH ×3 (10:55→23:06)
[2019-02-28] MEDS: METOPROLOL TART 25 MG TABLET PO SCH ×2 (10:55→20:41)
[2019-02-28] MEDS: MONTELUKAST 10 MG TAB PO SCH (10:55)
[2019-02-28] MEDS: LOSARTAN 50 MG TAB PO SCH (10:56)
[2019-02-28] MEDS: ROSUVASTATIN 10 MG TAB (CRESTOR) PO SCH (10:56)
--- NOTE | 2019-02-28 11:17 | ECGEPIP ---
[facility] Test Date: 2019-02-28 Pat Name: CHELO MORAN Department: Room: [place] [address] Gender: Female Application Internship: ENRIQUE : 1945 Requested By: Yahir Simpson Order Number: [id number] Reading MD: Yahir Simpson Measurements Intervals [place] Rate: 91 P: 56 IA: 182 QRS: 76 QRSD: 105 T: -35 QT: 305 QTc: 376 Interpretive Statements SINUS RHYTHM NONSPECIFIC ST & T-WAVE ABNORMALITY COMPARED TO 02/27/19 PVC'S ARE NO LONGER PRESENT, OTHERWISE MINIMAL CHANGE Electronically Signed on 02-28-2019 11:17:15 EDT by Yahir Simpson
[2019-02-28] MEDS ORDERED: POTASSIUM CHLORIDE 10 MEQ SR TABLET PO ONE ×2 (12:45→15:00)
[2019-02-28] MEDS: POTASSIUM PHOSPHATE INJ 15 MMOL in D5W 250 ML IV ONE ×2 (13:50→14:00)
[2019-02-28] MEDS ORDERED: ACETAMINOPHEN 500 MG TAB PO PRN (16:00)
[2019-02-28] MEDS ORDERED: ONDANSETRON 4 MG TAB (S0181) PO PRN (16:00)
[2019-02-28] MEDS ORDERED: PERCOCET 5MG/325MG TAB PO PRN (16:15)
[2019-02-28] MEDS: CLOPIDOGREL 75 MG TAB PO SCH (17:31)
[2019-02-28] MEDS: **NOTE PATIENT COMMENT** MISC XX SCH (20:41)
[2019-03-01] MEDS: PIPERACILLIN/TAZOBACTAM SOD 3.375 GM in D5W MINI-BAG PLUS 50 ML IV SCH ×4 (05:14→23:21)
[2019-03-01 05:39] LABS: BASO % 0.2 % (0.0-1.0); EOS % 0.1 % (0.0-3.0); HEMATOCRIT 38.1 % (36.0-47.0); HEMOGLOBIN 12.5 g/dl (12.0-15.5); LYMPH # 1.9 10^3/uL (1.5-4.5); LYMPH % 9.8 % (24.0-44.0); MEAN CORPUSCULAR HEMOGLOBIN 30.4 pg (27.0-33.0); MEAN CORPUSCULAR HGB CONC 32.8 g/dl (32.0-36.5); MEAN CORPUSCULAR VOLUME 92.7 fl (80.0-96.0); MONO # 0.9 10^3/uL (0.0-0.8); MONO % 4.6 % (0.0-5.0); NEUTROPHILS # 16.1 10^3/uL (1.8-7.7); PLATELET COUNT, AUTOMATED 220 10^3/uL (150-450); RED BLOOD COUNT 4.11 10^6/uL (4.00-5.40); WHITE BLOOD COUNT 19.2 10^3/uL (4.0-10.0)
[2019-03-01 06:00] VITALS: BP 151/70
[2019-03-01 06:13] LABS: BLOOD UREA NITROGEN 17 MG/DL (7-18); CALCIUM LEVEL 8.3 MG/DL (8.8-10.2); CARBON DIOXIDE LEVEL 28 MEQ/L (21-32); CHLORIDE LEVEL 104 MEQ/L (98-107); CREATININE FOR GFR 0.83 MG/DL (0.55-1.30); GLOMERULAR FILTRATION RATE > 60.0 (>39); GLUCOSE, FASTING 125 MG/DL (70-100); POTASSIUM SERUM 4.1 MEQ/L (3.5-5.1); SODIUM LEVEL 139 MEQ/L (136-145)
[2019-03-01] MEDS: ADVAIR HFA 230/21MCG INHALER INH SCH ×2 (07:35→20:00)
[2019-03-01] MEDS: ALBUTEROL SULFATE 2.5 MG/0.5 ML INH NEB SOLN NEB SCH ×4 (07:35→20:00)
[2019-03-01] MEDS: TIOTROPIUM INHALER/CAPSULE (SPIRIVA) INH SCH (07:35)
--- NOTE | 2019-03-01 07:51 | REP ---
ERCP fluoroscopic views: A series of 99 intraoperative fluoroscopic views are performed during ERCP. During the procedure multiple common biliary duct filling defects are identified. The common biliary duct is dilated. At the completion of the procedure no common biliary duct filling defects are identified. A common biliary duct stent has been placed. Fluoroscopic exposure time is 5 minutes and 10 seconds. Fluoroscopic images are performed with last image hold technology and require no additional radiation.. Electronically Signed by Ousmane Turner MD 02/28/2019 07:47 A
--- NOTE | 2019-03-01 07:52 | IPN ---
DATE: 02/28/2019 Mrs. Guzmán has undergone an ERCP yesterday afternoon. The procedure was well tolerated and very successful. She almost immediately after extubation felt improved. She continues to deny any chest discomfort and her dyspnea is unchanged from her baseline. She still has mild abdominal soreness, but overall is feeling much better and would like to start eating something. Vital signs this morning blood pressure 144/80, heart rate has been in 90s sinus rhythm without significant ectopy. She has been afebrile. Saturation 92% on 2 liters of oxygen. Fluid balance yesterday was documented negative 430 mL. She made about 3.1 liters of urine. Weight has been documented at 121.1 kg. She is alert, oriented, and appropriate. Her jugular venous pulse (JVP) is still not elevated. Lungs are reasonably clear to auscultation. I do not appreciate any wheezing, crackles or rhonchi. Heart exam reveals regular rhythm without gallop, rub or murmur. Abdomen is obese but soft. There is still mild tenderness but bowel sounds are easily audible today. Extremities are free of significant edema. Peripheral pulses are intact. Neurologically she is intact as well. LABORATORY: Basic metabolic panel - sodium 138, potassium 3.3, BUN 16, creatinine 0.89, glucose 132, bilirubin is down to 1.7 and albumin is 2.8. CBC reveals WBC count 19.9, hemoglobin 12.2, hematocrit 36 and platelet count 215,000. ECG today reveals presence of sinus rhythm with diffuse ST-T abnormalities not appreciably different from yesterday. ASSESSMENT AND PLAN: Mrs. Guzmán is a 73-year-old lady who has known carotid artery stenosis and has been oxygen dependent for many years but did not have any history of coronary artery disease or congestive heart failure. She presented with biliary sepsis and in the process had a mild troponin elevation. Yesterday evening the level was 0.66, I am going to add another cardiac profile to this morning's labs. There have been diffuse ST-T abnormalities on EKG but without significant evolution. I suspect that this is most likely type 2 myocardial infarction in setting of sepsis. We will continue supportive management. She will start eating today so I am going to switch her metoprolol to oral form. She also will start getting her ARB. As her fluid balance yesterday was actually negative yesterday and she is mildly hypokalemic I am not going to administer diuretics today. She will receive rosuvastatin tonight. Unfortunately she is allergic to aspirin and I do not think it is safe to administer Plavix of Brilinta as yet considering the instrumentation of gastrointestinal (GI) tract with risk of bleeding. I am starting to be more optimistic about her prognosis. Hopefully she will have uneventful course from now on. I explained to her that once she recovers from current illness she will need evaluation for underlying coronary artery disease. Considering the circumstances and her size I suspect that cardiac PET scan will be the most of her appropriate technique.
--- NOTE | 2019-03-01 07:53 | IPN ---
DATE: 02/28/2019 The patient was seen and examined this morning during bedside rounds. Yesterday the patient was taken for an ERCP. She was intubated for the procedure, but was able to be extubated successfully postprocedurally. She was seen yesterday postprocedure as well on the post-anesthesia care unit (PACU) and had been doing well on her usual nasal cannula oxygen supplementation. This morning the patient does have some occasional cough which she does not feel has been worsening as she has a history of chronic cough as well. She denies any chest pain. No increased shortness of breath. No wheezing. Her abdominal pain has improved. She does have some mild tenderness in the right side as well as in the epigastric region. She denies any nausea, no vomiting. Has not had any fevers overnight. PHYSICAL EXAM: Temperature 98.3, pulse 95, respirations 20, blood pressure 144/80, O2 sat 92% on 3 liters nasal cannula. In 2.6 liters, out 3.1 liters. General: The patient is a morbidly obese female who is lying in bed in no acute distress. She is not using any accessory muscles for respiration. HEENT: Normocephalic, atraumatic. Moist mucous membranes. Neck is supple. Trachea is midline. Unable to appreciate jugular venous distention (JVD) due to body habitus. Cardiovascular: Regular rate and rhythm. Normal S1-S2 with distant heart sounds. Unable appreciate murmurs. Pulmonary: Some decreased breath sounds bilaterally with a few crackles at the bases. No wheezing or rhonchi. Abdomen is obese, soft, mild tenderness to palpation in the right upper quadrant and epigastric region. Lower extremities: There is some nonpitting lower extremity edema bilaterally. Labs: WBC 19.9, hemoglobin 12.2, platelets 215. Chemistry - sodium is 131, potassium 3.3, chloride is 102, bicarb is 27, BUN 14, creatinine 0.75, glucose is 139, troponin yesterday increased to 0.66. Procedures: ERCP was performed yesterday. Findings were consistent with choledocholithiasis. She had sludge and sludge noted there had a sphincterotomy and balloon extraction. ASSESSMENT AND PLAN: Ms. Guzmán is a 73-year-old female with a past medical history of chronic obstructive pulmonary artery disease (COPD) with chronic hypoxemic respiratory failure on 3 liters nasal cannula oxygen, history of obstructive sleep apnea (VINNY) not on continuous positive airway pressure (CPAP), hypertension, left carotid artery stenosis, history of cholecystitis in the past who presented with abdominal pain, nausea and vomiting. The patient was found to have acute choledocholithiasis and sepsis secondary to the choledocholithiasis. She was planned for an ERCP with GI and then a possible cholecystectomy either as an inpatient or as an outpatient if she has improved. Yesterday the patient had ERCP performed. She was intubated for the procedure but was able to be successfully extubated to her usual nasal cannula oxygen supplementation. - Continue with nasal cannula oxygen at 3 liters per minute. We will also give the patient an incentive spirometer to use, I suspect she has some atelectasis currently. - The patient was given Lasix one dose yesterday for diuresis to help optimize her volume status prior to her intubation. She continues to have some good urine output and we will hold off on for his further Lasix and restart her home medication of hydrochlorothiazide. - The patient did have some mild demand ischemia and likely does have a history of coronary artery disease. Cardiology has been consulted. She is unable to have aspirin due to an allergy which sounds like anaphylaxis. Her Plavix was on hold for her procedure. Would restart Plavix as soon as possible as per GI and surgery. - Continue with metoprolol and antihypertensive medications as per cardiology. - The patient was on ciprofloxacin for her sepsis and acute choledocholithiasis. Overnight she had a reaction of itching with infiltration as well with the ciprofloxacin. She previously had been on Zosyn and did not have a reported allergy. Therefore we will change her to Zosyn while inpatient and can likely de-escalate her to oral antibiotics such as Augmentin for discharge. Would continue with antibiotics as per the primary team and GI. - We will also check a lipase level and monitor her for possible pancreatitis as a complication after her ERCP. - Continue with her home inhalers for her COPD with Advair and Spiriva while inpatient and can switch to her usual inhalers upon discharge. Continue with albuterol nebulizers as needed. Deep venous thrombosis (DVT) prophylaxis with heparin. Full code. The patient can followup with pulmonary as an outpatient with Dr. Ariza once discharged in a few weeks. MTDD
[2019-03-01] MEDS: LIDOCAINE 5% (LIDODERM) PATCH TD SCH (07:58)
[2019-03-01] MEDS: ROSUVASTATIN 10 MG TAB (CRESTOR) PO SCH (08:00)
[2019-03-01] MEDS: LOSARTAN 50 MG TAB PO SCH (08:00)
[2019-03-01] MEDS: MONTELUKAST 10 MG TAB PO SCH (08:00)
[2019-03-01] MEDS: METOPROLOL TART 25 MG TABLET PO SCH (08:00)
[2019-03-01] MEDS: CLOPIDOGREL 75 MG TAB PO SCH (08:00)
[2019-03-01] MEDS: NYSTATIN 100,000 UNITS/GM TOPICAL PWD 15 GM TOP SCH (08:02)
--- NOTE | 2019-03-01 08:26 | IPN ---
DATE: 03/01/2019 Mrs. Jane was moved from ICU to medical/surgical floor. She continues to improve. She still has some mild abdominal discomfort but it is improving. She was able to tolerate a small amount of food this morning without major difficulty. She denies any bowel movements but has been passing a lot of gas. Denies any nausea, vomiting or chest discomfort. Dyspnea is at its baseline. Vital signs: Blood pressure 132/66, heart rate has been in 90s and low 100s. She is afebrile. Saturation 90% on 3 liters of oxygen. Weight was not documented this morning as yet. Her fluid balance yesterday was recorded as negative 400 mL. She is alert and oriented and appropriate. Her JVP is not high. Lungs are reasonably clear. I appreciate better air movement than previous days. Heart exam regular rhythm. No gallop. Faint murmur at the apex. Abdomen is obese but soft, still mild tenderness diffusely but no guarding. Bowel sounds are active. Extremities are free of edema and peripheral pulses are easily palpable. LABORATORY: CBC is normal but for WBC count 19.2 thousand. Basic metabolic panel is normal. ECG today reveals sinus rhythm with nonspecific repolarization abnormalities, not appreciably different from before. ASSESSMENT/PLAN: Mrs. Jane is a 73-year-old female who came with biliary sepsis and in the process of mildly elevated troponin and nonspecific repolarization on ECG without obvious evolution. She underwent ERCP with overall marked improvement of her clinical condition. Cardiac-manzano, her troponin peaked at 0.6 and she never had any chest discomfort. An echocardiogram is still pending. I foresee that she will be discharged to complete outpatient evaluation for ischemia, most likely in the form of PET scan. She was already started on Plavix this morning. I think it is reasonable provided GI has no objections. I am not going to make any changes in her medications today other than advancing the dose of beta-neelam. From my perspective, she will be able to be discharged tomorrow unless there will be some change in her clinical status.
[2019-03-01 10:00] VITALS: BP 138/83
--- NOTE | 2019-03-01 10:48 | IPNPDOC ---
Text Note Date of Service The patient was seen on 03/01/19. NOTE No acute events overnight. No complaints today. Denies nausea, emesis, pain, or fevers. All of her and and back pains have resolved. VSSAF NAD abd - soft, obese, NT, ND labs - see below, LFTs pending A) 73y/o female with hyperbilirubinemia and likely choledocholithiasis with cholecystitis POD#2 s/p ERCP with stent placement COPD requiring home O2 P) followup with labs reg low fat diet plan to dc once labs are stable and schedule elective lap alva with Dr. Rock will follow as needed Sony Eddy DO VS,Fishbone, I+O VS, Fishbone, I+O Laboratory Tests 03/01/19 05:27 Red Blood Count 4.11, Mean Corpuscular Volume 92.7, Mean Corpuscular Hemoglobin 30.4, Mean Corpuscular Hemoglobin Concent 32.8, Red Cell Distribution Width 14.4, Neutrophils (%) (Auto) 84.0 H, Lymphocytes (%) (Auto) 9.8 L, Monocytes (%) (Auto) 4.6, Eosinophils (%) (Auto) 0.1, Basophils (%) (Auto) 0.2, Neutrophils # (Auto) 16.1 H, Lymphocytes # (Auto) 1.9, Monocytes # (Auto) 0.9 H, Eosinophils # (Auto) 0.0, Basophils # (Auto) 0.0, Calcium Level 8.3 L Vital Signs Date Time Temp Pulse Resp B/P (MAP) Pulse Ox O2 Delivery O2 Flow Rate FiO2 03/01/19 08:00 101 132/66 03/01/19 06:00 96.7 16 90 Nasal Cannula 3.0 I&O- Last 24 Hours up to 6 AM 03/01/19 05:59 Intake Total 880 ml Output Total 1100 ml Balance -220 ml LISSA EDDY DO Mar 01, 2019 10:48
[2019-03-01] MEDS ORDERED: DOCUSATE SODIUM 100 MG CAP PO PRN (11:45)
--- NOTE | 2019-03-01 12:37 | IPNPDOC ---
Subjective Date Seen The patient was seen on 02/28/19. Time of service 1:15PM Subjective Chief Complaint/HPI Abdominal pain. Events since last encounter The patient reports feeling much better this morning, she had a ERCP and stent placed earlier on today. She ate parts of a sandwhich and fruit Objective Physical Examination Other physical findings VITALS: T 98, P 87, R 18, BP 135/60/ O2 91% GENERAL APPEARANCE: well nourished, well developed, no loner HEENT: Extraocular movements intact, nasal cannula in place CARDIOVASCULAR: Regular rate and rhythm, no murmurs, rubs or gallops. LUNGS: The patient is able to speak full sentences without stopping to rest, is not using. Sensory muscles. There are Diminished breath sounds bilaterally, ABDOMEN: Abdomen is obese, there is no bruising, Patterson sign is negative today positive MUSCULOSKELETAL: Range of motion is intact 4 extremities SKIN: no longer flushed NEUROLOGICAL: CN II-12 grossly intact, speech is not dysarthric. PSYCHIATRIC: Alert and oriented 3, able to understand and follow commands Assessment /Plan Assessment 1. Acute cholecystitis/ choledocolithasis Sepsis resolved s/p ERCP w stent placement Plan: transfer from ICU to PCU / advance diet as tolerated / continue with IV fluids/ switch from fentanyl to PO pain meds, switch from IV Zofran to PO zofran, and c/w zosyn abx day #2 (had a rxn to Cipro), appreciate GI & Surgery input, plans for pt to f/u w Dr. Rock in an out pt basis for surgery noted 2. COPD with Oxygen-dependent respiratory failure. Dependent on 3 L oxygen at home Plan: Continue supplemental oxygen, appreciate pulmonary's input. 3. Elevated troponins, likely secondary to sepsis - troponins and EKG reports reviewed. Plan: appreciete cardiology's in put/ plans for out pt stress test noted 5. Chronic hypertension Plan: resume home meds. 6Carotid stenosis. Plan: resume Plavix DVT prophylaxis with SCDs. Disposition pending clinical course. Plan/VTE VTE Prophylaxis Ordered?: No VTE Exclusion Mechanical Proph: Other (scheduled for surgery) VS, I&O, 24H, Fishbone Vital Signs/I&O Vital Signs Date Time Temp Pulse Resp B/P (MAP) Pulse Ox O2 Delivery O2 Flow Rate FiO2 03/01/19 10:00 99.6 78 21 138/83 (101) 92 Nasal Cannula 03/01/19 06:00 3.0 I&O- Last 24 Hours up to 6 AM 03/01/19 06:00 Intake Total 1130 ml Output Total 1250 ml Balance -120 ml Laboratory Data 24H LABS Laboratory Tests 02/28/19 03:29 Red Blood Count 4.01, Mean Corpuscular Volume 90.3, Mean Corpuscular Hemoglobin 30.4, Mean Corpuscular Hemoglobin Concent 33.7, Red Cell Distribution Width 14.3, Neutrophils (%) (Auto) 91.1 H, Lymphocytes (%) (Auto) 4.2 L, Monocytes (%) (Auto) 3.5, Eosinophils (%) (Auto) 0.0, Basophils (%) (Auto) 0.1, Neutrophils # (Auto) 18.2 H, Lymphocytes # (Auto) 0.8 L, Monocytes # (Auto) 0.7, Eosinophils # (Auto) 0.0, Basophils # (Auto) 0.0, Calcium Level 8.6 L, Total Creatine Kinase 48 02/28/19 08:51 Calcium Level 8.8, Aspartate Amino Transf (AST/SGOT) 22, Alanine Aminotransferase (ALT/SGPT) 47, Alkaline Phosphatase 135 H, Total Bilirubin 1.7 #H, Total Protein 7.3, Albumin 2.8 L Microbiology Microbiology 02/26/19 Blood Culture - Preliminary, Resulted No Growth after 72 hours. All specime... 02/26/19 Blood Culture - Preliminary, Resulted No Growth after 72 hours. All specime... CAROL CULVER MD Mar 01, 2019 12:37
--- NOTE | 2019-03-01 12:47 | IPNPDOC ---
Subjective Date Seen The patient was seen on 03/01/19. Time of service 9:45 AM Subjective Chief Complaint/HPI Abdominal pain. Events since last encounter The patient reports feeling much better this morning, reports that her abdominal pain has resolved, that she was able to walk around the hallway a bit, and is a sking when she can go home. Objective Physical Examination Other physical findings GENERAL APPEARANCE: well nourished, well developed, seated up in chair today HEENT: Extraocular movements intact, nasal cannula in place CARDIOVASCULAR: Regular rate and rhythm, no murmurs, rubs or gallops. LUNGS: The patient is able to speak full sentences without stopping to rest, is not using accessory muscles & the lungs are CTAB ABDOMEN: Abdomen is obese, there is no bruising, abdominal pain has resolved MUSCULOSKELETAL: Range of motion is intact 4 extremities NEUROLOGICAL: CN II-12 grossly intact, speech is not dysarthric. PSYCHIATRIC: Alert and oriented 3, able to understand and follow commands Assessment /Plan Assessment Mrs. Jane is a 73-year-old female with a past medical history of oxygen dependent COPD, and multiple abdominal surgeries, who will be admitted to PCU for management of sepsis secondary to acute cholecystitis. 1.Chronic cholecystitis/ choledocolithasis s/p ERCP w stent placement yesterday Sepsis resolved but WBC # still elevated Plan: advance diet as tolerated / dc IV fluids/ c/w PO pain meds, zofran, zosyn abx day #3 (had a rxn to Cipro), appreciate GI & Surgery input, plans for pt to f/u w Dr. Rock in an out pt basis for surgery noted 2. COPD with Oxygen-dependent respiratory failure. Dependent on 3 L oxygen at home Plan: Continue supplemental oxygen, appreciate pulmonary's input. 3. Elevated troponins, likely secondary to sepsis - troponins and EKG reports reviewed. Plan: d/c telemetry / appreciate cardiology's in put/ plans for out pt stress test noted 5. Chronic hypertension Plan: c/w home meds. 6. Carotid stenosis. Plan: c/w Plavix 7.Constipation Plan: colace DVT prophylaxis with SCDs. Disposition trending down of WBC # possibly tomorrow or Wed Plan/VTE VTE Prophylaxis Ordered?: No VTE Exclusion Mechanical Proph: Other (scheduled for surgery) VS, I&O, 24H, Fishbone Vital Signs/I&O Vital Signs Date Time Temp Pulse Resp B/P (MAP) Pulse Ox O2 Delivery O2 Flow Rate FiO2 03/01/19 10:00 99.6 78 21 138/83 (101) 92 Nasal Cannula 03/01/19 06:00 3.0 I&O- Last 24 Hours up to 6 AM 03/01/19 06:00 Intake Total 1130 ml Output Total 1250 ml Balance -120 ml Laboratory Data CBC/BMP Laboratory Tests 03/01/19 05:27 Red Blood Count 4.11, Mean Corpuscular Volume 92.7, Mean Corpuscular Hemoglobin 30.4, Mean Corpuscular Hemoglobin Concent 32.8, Red Cell Distribution Width 14.4, Neutrophils (%) (Auto) 84.0 H, Lymphocytes (%) (Auto) 9.8 L, Monocytes (%) (Auto) 4.6, Eosinophils (%) (Auto) 0.1, Basophils (%) (Auto) 0.2, Neutrophils # (Auto) 16.1 H, Lymphocytes # (Auto) 1.9, Monocytes # (Auto) 0.9 H, Eosinophils # (Auto) 0.0, Basophils # (Auto) 0.0, Calcium Level 8.3 L Microbiology Microbiology 02/26/19 Blood Culture - Preliminary, Resulted No Growth after 72 hours. All specime... 02/26/19 Blood Culture - Preliminary, Resulted No Growth after 72 hours. All specime... CAROL CULVER MD Mar 01, 2019 12:47
[2019-03-01 14:00] VITALS: BP_SYST 138; BP_DIAS 73; BP_DIAS 81
[2019-03-01 18:00] VITALS: BP 137/70
--- NOTE | 2019-03-01 20:30 | ECHO ---
DATE OF PROCEDURE: 03/01/2019 REFERRING PHYSICIAN: Dr. Yahir Simpson INDICATION: Elevated troponin. Weight 121 kg and height 163 cm. The study is of acceptable technical quality considering patient's body habitus. The patient is in sinus rhythm. DIMENSIONS: IVS: 1.3 LV: 5.3 LVPW: 1.2 LA: 3.3 Aorta: 3.4 IVC: 2.3 Left atrial volume index: 28 Mitral E wave velocity: 134 A wave: 94 E prime septal: 6.9 E prime lateral: 9.9 FINDINGS: The left ventricle is of normal size and probably normal systolic function based on fair visualization. I estimate left ventricular ejection fraction (LVEF) about 65-70%. No distinct segmental wall motion abnormalities are noted. Right ventricle also appears to be normal size and systolic function. Left atrium is mildly enlarged, right atrium appears normal. Aortic valve is mildly sclerotic, but it has three cusps and preserved mobility. There are also degenerative abnormalities of mitral valve with mitral annular calcifications. Mobility of leaflets is preserved. Tricuspid valve appears normal. The pulmonic valve also appears normal. No pericardial effusion is noted. Inferior vena cava is dilated, but there is partial collapse with respiration indicative of at least mildly elevated central venous pressure. Aortic root and aortic arch appear normal. Abdominal aorta was not well seen. Doppler interrogation of aortic valve reveals no significant stenosis or insufficiency. There is trace mitral insufficiency and trace tricuspid insufficiency. Quality of TR jet was not sufficient to adequately estimate pulmonary artery pressure. Pulmonic valve is functionally competent. Mitral inflow pattern and tissue Doppler imaging of mitral annulus revealed grade 2 diastolic dysfunction. CONCLUSIONS: 1. Study is of acceptable technical quality. 2. Normal left ventricular (LV) size with mild left ventricular hypertrophy (LVH) and hyperdynamic LV systolic function. Likely grade 2 diastolic dysfunction. 3. Aortic sclerosis but no stenosis. 4. Elevated central venous pressure. 5. Unable to estimate pulmonary artery pressure. COMMENT: Subacute bacterial endocarditis (SBE) prophylaxis is not recommended. Study is consistent with hypertensive heart disease. No segmental wall motion abnormalities were appreciated.
[2019-03-01] MEDS: **NOTE PATIENT COMMENT** MISC XX SCH (20:47)
[2019-03-01] MEDS: METOPROLOL TART 50 MG TAB PO SCH (20:47)
[2019-03-01 22:00] VITALS: BP 128/75
[2019-03-02 02:00] VITALS: BP 127/88
[2019-03-02] MEDS: PIPERACILLIN/TAZOBACTAM SOD 3.375 GM in D5W MINI-BAG PLUS 50 ML IV SCH ×4 (05:05→22:45)
[2019-03-02 06:00] VITALS: BP 113/57
[2019-03-02 06:07] LABS: BASO % 0.2 % (0.0-1.0); EOS # 0.1 10^3/uL (0.0-0.50); EOS % 0.6 % (0.0-3.0); HEMATOCRIT 35.1 % (36.0-47.0); HEMOGLOBIN 11.5 g/dl (12.0-15.5); LYMPH # 1.8 10^3/uL (1.5-4.5); LYMPH % 11.4 % (24.0-44.0); MEAN CORPUSCULAR HEMOGLOBIN 30.7 pg (27.0-33.0); MEAN CORPUSCULAR HGB CONC 32.8 g/dl (32.0-36.5); MEAN CORPUSCULAR VOLUME 93.9 fl (80.0-96.0); MONO % 6.1 % (0.0-5.0); NEUTROPHILS % 80.3 % (36.0-66.0); PLATELET COUNT, AUTOMATED 201 10^3/uL (150-450); RED BLOOD COUNT 3.74 10^6/uL (4.00-5.40); WHITE BLOOD COUNT 16.2 10^3/uL (4.0-10.0)
[2019-03-02 06:30] LABS: BLOOD UREA NITROGEN 14 MG/DL (7-18); CALCIUM LEVEL 8.5 MG/DL (8.8-10.2); CARBON DIOXIDE LEVEL 28 MEQ/L (21-32); CHLORIDE LEVEL 101 MEQ/L (98-107); CREATININE FOR GFR 0.67 MG/DL (0.55-1.30); GLOMERULAR FILTRATION RATE > 60.0 (>39); GLUCOSE, FASTING 120 MG/DL (70-100); POTASSIUM SERUM 3.3 MEQ/L (3.5-5.1); SODIUM LEVEL 136 MEQ/L (136-145)
[2019-03-02] MEDS: ADVAIR HFA 230/21MCG INHALER INH SCH ×2 (07:24→20:40)
[2019-03-02] MEDS: TIOTROPIUM INHALER/CAPSULE (SPIRIVA) INH SCH (07:24)
[2019-03-02] MEDS: ALBUTEROL SULFATE 2.5 MG/0.5 ML INH NEB SOLN NEB SCH ×4 (07:25→20:00)
--- NOTE | 2019-03-02 08:04 | IPN ---
DATE: 03/02/2019 Mrs. Jane tells me that she is feeling worse today than she did yesterday. She started having again right upper quadrant discomfort that is aggravated by certain movements or palpation over the right upper quadrant. No cardiac symptoms other than chronic stable dyspnea. She thinks that she is close to her baseline. Vital Signs: Blood pressure 113/57, heart rate has been from 70s to low 100s. She is afebrile. Saturation is 92% on 3 liters of oxygen and was 98% last night. Fluid balance yesterday was recorded approximately equal. Weight has not been documented. She has not had any bowel movement since she came to the hospital yet. She is alert and oriented and appropriate. Her jugular venous pulse (JVP) does not look high by my exam. Lungs are reasonably clear. No crackles or rhonchi are noted. Heart: Exam reveals regular tachycardia with occasional preventricular contractions (PVC). No gallop or rub is appreciated. She has a faint murmur at the apex. Abdomen is soft. There is right upper quadrant tenderness with some guarding in the area but is soft elsewhere and there is no obvious rebound tenderness. Extremities are free of edema. Peripheral pulses are good quality. Neurologically she is intact. LABORATORY: Hemoglobin 11.5, hematocrit 35, platelet count 201,000, WBC count 16,000. Basic metabolic panel sodium 136, potassium 3.3, BUN 14, creatinine 0.7, glucose 120. ASSESSMENT/PLAN Mrs. Jane is a 73-year-old lady who came with biliary sepsis and in the process had mild troponin elevation. She did not have any convincing evolution on ECG and her echocardiogram revealed preserved left ventricular systolic function and no hemodynamically significant valvular disease, even though she does have some evidence for elevated right-sided pressures. At this point from a cardiac perspective I foresee conservative management to be followed by outpatient noninvasive evaluation. She was started on Plavix by hospitalist service yesterday. I stopped the medication today because she keeps having symptoms and I do not think that we can be certain that she will not need additional instrumentation and consequently I think it is probably more risks to keep her on Plavix then without it. She also needs a little bit of diuretics. My intention was to give her furosemide, but because she is mildly hypokalemic this morning, I am going to give her low-dose spironolactone and if her potassium corrects, then we can give her furosemide tomorrow. As far as management of her right upper quadrant symptoms, that remains with gastroenterology (GI) and primary team. It is certainly somewhat concerning to me that her symptoms return after she had complete relief yesterday.
--- NOTE | 2019-03-02 08:29 | ECGEPIP ---
[facility] Test Date: 2019-03-01 Pat Name: CHELO MORAN Department: Room: [place] [address] Gender: Female [employer] Associate: DANNIELLE : [id number] Requested By: Yahir Simpson Order Number: [id number] Reading MD: Jude Telles Measurements Intervals [place] Rate: 90 P: 59 TX: 177 QRS: 64 QRSD: 101 T: -12 QT: 349 QTc: 429 Interpretive Statements SINUS RHYTHM NONSPECIFIC ST & T-WAVE ABNORMALITY Similar to tracing done 02-28-19 Electronically Signed on 03-02-2019 8:28:34 EDT by Jude Telles
[2019-03-02] MEDS: LOSARTAN 50 MG TAB PO SCH (08:30)
[2019-03-02] MEDS: SPIRONOLACTONE 25 MG TAB PO SCH (08:31)
[2019-03-02] MEDS: METOPROLOL TART 50 MG TAB PO SCH ×2 (08:31→20:29)
[2019-03-02] MEDS: MONTELUKAST 10 MG TAB PO SCH (08:31)
[2019-03-02] MEDS: ROSUVASTATIN 10 MG TAB (CRESTOR) PO SCH (08:31)
[2019-03-02] MEDS: LIDOCAINE 5% (LIDODERM) PATCH TD SCH (08:31)
[2019-03-02] MEDS: NYSTATIN 100,000 UNITS/GM TOPICAL PWD 15 GM TOP SCH (08:32)
[2019-03-02 10:00] VITALS: BP 115/68
[2019-03-02] MEDS ORDERED: POTASSIUM CHL PWD 20 MEQ PACKET PO ONE (11:00)
[2019-03-02] MEDS: SENNA 8.6 MG TAB (SENOKOT) PO SCH (11:08)
[2019-03-02 14:00] VITALS: BP 118/68
--- NOTE | 2019-03-02 16:53 | IPNPDOC ---
Subjective Date Seen The patient was seen on 03/02/19. Time of service 8:30 AM Subjective Chief Complaint/HPI Abdominal pain Events since last encounter The patient reports feeling almost back to her baseline except for mild residual right upper quadrant pain. She has been able to eat small amount of foods. Objective Physical Examination Other physical findings VITAL SIGNS: See below GENERAL APPEARANCE: well nourished, well developed, seated up in her bed HEENT: Extraocular movements intact, nasal cannula in place CARDIOVASCULAR: Regular rate and rhythm, no murmurs, rubs or gallops. LUNGS: The lungs are CTAB ABDOMEN: Abdomen is obese, bowel sounds are Hypoactive, there is mild right upper quadrant tenderness on palpation MUSCULOSKELETAL: Range of motion is intact 4 extremities NEUROLOGICAL: CN II-12 grossly intact, speech is not dysarthric. PSYCHIATRIC: Alert and oriented 3, able to understand and follow commands Assessment /Plan Assessment Mrs. Jane is a 73-year-old female with a past medical history of oxygen depe ndent COPD, and multiple abdominal surgeries, who was initially admitted for management of sepsis secondary to acute cholecystitis/choledocholithiasis. 1.Chronic cholecystitis/ choledocolithasis s/p ERCP w stent placement yesterday Sepsis resolved but WBC # still elevated Plan: advance diet as tolerated / c/w PO pain meds, zofran, zosyn abx day #4 (had a rxn to Cipro), appreciate GI & Surgery input, plans for pt to f/u w Dr. Rock on how long the patient should continue taking antibiotics and when she should follow up with him on an outpatient basis 2. COPD with Oxygen-dependent respiratory failure. Dependent on 3 L oxygen at home Plan: Continue supplemental oxygen, appreciate pulmonary's input. 3. Elevated troponins, likely secondary to sepsis - troponins and EKG reports reviewed. Plan: d/c telemetry / appreciate cardiology's in put/ plans for out pt stress test noted 5. Chronic hypertension Plan: c/w home meds. 6. Carotid stenosis. Plan: Off Plavix per cardiology 7.Constipation Likely secondary to pain medications Plan: Stool softeners. 8. Hypokalemia. Plan: Repeat potassium and follow-up BMP and potassium tomorrow DVT prophylaxis with SCDs. Disposition pending down of WBC # possibly tomorrow Plan/VTE VTE Prophylaxis Ordered?: No VTE Exclusion Mechanical Proph: Other (scheduled for surgery) VS, I&O, 24H, Fishbone Vital Signs/I&O Vital Signs Date Time Temp Pulse Resp B/P (MAP) Pulse Ox O2 Delivery O2 Flow Rate FiO2 03/02/19 14:00 98.7 92 24 118/68 (85) 90 Nasal Cannula 3.0 I&O- Last 24 Hours up to 6 AM 03/02/19 05:59 Intake Total 1300 ml Output Total 400 ml Balance 900 ml Laboratory Data 24H LABS Laboratory Tests 2 03/02/19 05:36: Immature Granulocyte % (Auto) 1.4, White Blood Count 16.2H, Red Blood Count 3.74L, Hemoglobin 11.5L, Hematocrit 35.1L, Mean Corpuscular Volume 93.9, Mean Corpuscular Hemoglobin 30.7, Mean Corpuscular Hemoglobin Concent 32.8, Red Cell Distribution Width 14.4, Platelet Count 201, Neutrophils (%) (Auto) 80.3H, Lymphocytes (%) (Auto) 11.4L, Monocytes (%) (Auto) 6.1H, Eosinophils (%) (Auto) 0.6, Basophils (%) (Auto) 0.2, Neutrophils # (Auto) 13.0H, Lymphocytes # (Auto) 1.8, Monocytes # (Auto) 1.0H, Eosinophils # (Auto) 0.1, Basophils # (Auto) 0.0, Nucleated Red Blood Cells % (auto) 0.0, Anion Gap 7L, Glomerular Filtration Rate > 60.0, Blood Urea Nitrogen 14, Creatinine 0.67, Sodium Level 136, Potassium Level 3.3L, Chloride Level 101, Carbon Dioxide Level 28, Calcium Level 8.5L CBC/BMP Laboratory Tests 03/02/19 05:36 Red Blood Count 3.74 L, Mean Corpuscular Volume 93.9, Mean Corpuscular Hemoglobin 30.7, Mean Corpuscular Hemoglobin Concent 32.8, Red Cell Distribution Width 14.4, Neutrophils (%) (Auto) 80.3 H, Lymphocytes (%) (Auto) 11.4 L, Monocytes (%) (Auto) 6.1 H, Eosinophils (%) (Auto) 0.6, Basophils (%) (Auto) 0.2, Neutrophils # (Auto) 13.0 H, Lymphocytes # (Auto) 1.8, Monocytes # (Auto) 1.0 H, Eosinophils # (Auto) 0.1, Basophils # (Auto) 0.0, Calcium Level 8.5 L Microbiology Microbiology 02/26/19 Blood Culture - Preliminary, Resulted No Growth after 72 hours. All specime... 02/26/19 Blood Culture - Preliminary, Resulted No Growth after 72 hours. All specime... CAROL CULVER MD Mar 02, 2019 16:53
[2019-03-02 18:00] VITALS: BP 110/68
[2019-03-02] MEDS: **NOTE PATIENT COMMENT** MISC XX SCH (21:26)
[2019-03-02 22:00] VITALS: BP 109/60
[2019-03-03 02:00] VITALS: BP 114/62
[2019-03-03] MEDS: PIPERACILLIN/TAZOBACTAM SOD 3.375 GM in D5W MINI-BAG PLUS 50 ML IV SCH ×2 (05:19→11:04)
[2019-03-03 06:00] VITALS: BP 121/70
[2019-03-03 07:20] LABS: BASO # 0.1 10^3/uL (0.0-0.2); BASO % 0.3 % (0.0-1.0); EOS # 0.1 10^3/uL (0.0-0.50); EOS % 0.9 % (0.0-3.0); HEMATOCRIT 34.3 % (36.0-47.0); HEMOGLOBIN 11.2 g/dl (12.0-15.5); LYMPH # 1.9 10^3/uL (1.5-4.5); LYMPH % 12.4 % (24.0-44.0); MEAN CORPUSCULAR HEMOGLOBIN 30.8 pg (27.0-33.0); MEAN CORPUSCULAR HGB CONC 32.7 g/dl (32.0-36.5); MEAN CORPUSCULAR VOLUME 94.2 fl (80.0-96.0); MONO # 0.9 10^3/uL (0.0-0.8); MONO % 5.8 % (0.0-5.0); NEUTROPHILS # 11.8 10^3/uL (1.8-7.7); NEUTROPHILS % 78.8 % (36.0-66.0); PLATELET COUNT, AUTOMATED 190 10^3/uL (150-450); RED BLOOD COUNT 3.64 10^6/uL (4.00-5.40)
[2019-03-03] MEDS: ADVAIR HFA 230/21MCG INHALER INH SCH (07:39)
[2019-03-03] MEDS: TIOTROPIUM INHALER/CAPSULE (SPIRIVA) INH SCH (07:39)
[2019-03-03 07:42] LABS: BLOOD UREA NITROGEN 13 MG/DL (7-18); CALCIUM LEVEL 8.6 MG/DL (8.8-10.2); CARBON DIOXIDE LEVEL 29 MEQ/L (21-32); CHLORIDE LEVEL 103 MEQ/L (98-107); CREATININE FOR GFR 0.66 MG/DL (0.55-1.30); GLOMERULAR FILTRATION RATE > 60.0 (>39); GLUCOSE, FASTING 108 MG/DL (70-100); POTASSIUM SERUM 3.4 MEQ/L (3.5-5.1); SODIUM LEVEL 138 MEQ/L (136-145)
[2019-03-03] MEDS: ALBUTEROL SULFATE 2.5 MG/0.5 ML INH NEB SOLN NEB SCH ×2 (07:48→11:40)
[2019-03-03] MEDS: METOPROLOL TART 50 MG TAB PO SCH (08:08)
[2019-03-03] MEDS: SPIRONOLACTONE 25 MG TAB PO SCH (08:09)
[2019-03-03] MEDS: ROSUVASTATIN 10 MG TAB (CRESTOR) PO SCH (08:10)
[2019-03-03] MEDS: NYSTATIN 100,000 UNITS/GM TOPICAL PWD 15 GM TOP SCH (08:10)
[2019-03-03] MEDS: LIDOCAINE 5% (LIDODERM) PATCH TD SCH (08:10)
[2019-03-03] MEDS: MONTELUKAST 10 MG TAB PO SCH (08:10)
[2019-03-03] MEDS: SENNA 8.6 MG TAB (SENOKOT) PO SCH (08:10)
[2019-03-03 08:11] VITALS: BP 106/55
[2019-03-03] MEDS: LOSARTAN 50 MG TAB PO SCH (08:11)
--- NOTE | 2019-03-03 08:27 | CR ---
DATE OF CONSULTATION: 02/26/2019 This 73-year white female being seen by gastroenterology for evaluation of epigastric pain for past 3 days with a known history of gallstones. The patient was found to have dilated intra and extrahepatic ducts on gallbladder ultrasound. No obvious stones in the biliary tract could be seen. The patient liver functions were elevated showing a bilirubin of at least 2.5 to 3 with elevated transaminases and alkaline phosphatase. The patient had gallstones in the dependent portion of the gallbladder based on ultrasound study. The patient had some episodes of nausea with chills, but no fevers or hematemesis. The patient has advanced chronic obstructive pulmonary disease (COPD). PAST MEDICAL HISTORY IS POSITIVE FOR: 1. Chronic obstructive pulmonary disease (COPD) with chronic hypoxemic respiratory failure. The patient is on 3 liters of oxygen at home. 2. Known history of gallstones and chronic cholecystitis. 3. Status post lithotripsy. 4. Tubal ligation. 5. Hypertension. 6. Carotid artery stenosis. SOCIAL HISTORY: Noncontributory to the above problem. The patient was a former smoker, however. FAMILY HISTORY: Positive for nephrolithiasis and colon cancer 12-POINT REVIEW OF SYSTEMS: Noncontributory. PHYSICAL EXAMINATION: Well-developed, well-nourished obese white female who is in some distress. Chest was clear. Cardiovascular exam showed a regular rhythm. No murmurs or gallops. Normal physiological split, S1-S2. Abdomen: Soft, mild epigastric tenderness. No hepatosplenomegaly. Bowel sounds positive. Extremities: No cyanosis or clubbing. Chitra's negative. Ultrasound of the gallbladder showed a mildly dilated gallbladder with small stones and sludge. The patient had pain in the right upper quadrant, CBD 11 mm. The patient has fatty a liver and mild hepatomegaly. Laboratory studies on admission included a white count of 16,600, hemoglobin and hematocrit are14.9 and 45.4. The patient's chemistry showed a total bilirubin 3.4, AST was 143, ALT is 82, alkaline phosphatase is 144. Over the past 24 hours since the patient was initially seen, her white count has stayed about the same of 16.1. Chemistry showed a slight elevation of total bilirubin of 3.5. The AST has dropped to 63, ALT is 81+ and alkaline phosphatase is fallen to 138. Blood cultures were negative times 24 hours. ANALYSIS: Acute epigastric pain with abnormal liver function tests, probable obstructive jaundice secondary to common bile duct stones. Plan will be to set the patient up for endoscopic retrograde cholangiopancreatography (ERCP) with a papillotomy balloon sweep and attempt to decompress the patient's biliary tract. The patient has known chronic obstructive pulmonary disease (COPD) and has been seen by pulmonary. At this point, they do feel that she has a considerable problem with her COPD however. It should not be too much of a risk to proceed with intubation of the patient. Risk of the procedure including pancreatitis, bleeding, perforation has been discussed with the patient.
[2019-03-03] MEDS ORDERED: POTASSIUM CHLORIDE 10 MEQ SR TABLET PO ONE (08:30)
[2019-03-03] MEDS ORDERED: MIRALAX *UNIT DOSE* 17GM PACKET PO SCH (09:00)
[2019-03-03 10:00] VITALS: BP 136/68
--- NOTE | 2019-03-03 10:46 | CR ---
DATE OF CONSULTATION: 02/26/2019 REASON FOR CONSULTATION: Is cholecystitis with choledocholithiasis. HISTORY OF PRESENT ILLNESS: The patient is a 73-year-old female who presented with a 3-day history of upper abdominal pain radiating to her back. She was admitted by the hospitalists and has already been evaluated by Dr. Sweet who felt that she would benefit from ERCP. She has a known history of cholecystitis and cholelithiasis and has followed up Dr. Rock outpatient and has been discussing surgery with him, however she was scared to have surgery since the physician at a surrounding hospital told her she would likely not be able to come off the vent after surgery. Since Dr. Sweet recommend ERCP and she found that she would have to be intubated for that she was afraid of having intubated twice and wanted to see I would consider doing her cholecystectomy at the same time as the ERCP so that she only would have to go through the process one-time. Currently she has a right upper quadrant pains. No nausea or vomiting. No fevers or chills. No problems with urination or bowel movements. She has had these symptoms intermittently for the past few months but this episode has been going on for about 3 days and it is not improving and that is why she is here. PAST MEDICAL HISTORY: COPD, gallstones, hypertension, prior artery stenosis. PAST SURGICAL HISTORY: Tubal ligation lithotripsy. FAMILY HISTORY: Noncontributory. SOCIAL HISTORY: Denies drug, alcohol, tobacco abuse. ALLERGIES: Aspirin, ceftriaxone Cipro, propofol. MEDICATIONS: Please see medical record. REVIEW OF SYSTEMS: Pertinent, positives and negative in the HPI. PHYSICAL EXAMINATION: General alert and oriented times three in no acute distress. Vitals: Temperature 98.7, pulse 86, respirations 16, blood pressure 163/74, pulse ox 94% on 3 liters nasal cannula. HEENT: Pupils equal round react to light accommodation. Heart: S1-S2 regular rate and Lungs: Clear to auscultation bilaterally. Abdomen soft and palpation right upper quadrant. Localized guarding, no rigidity. No signs of any ventral hernias. Bowel sounds positive. Extremities: No clubbing, cyanosis or edema. LABORATORY DATA: White count 16.6, hemoglobin 14.9, platelets 270, potassium 3.8, creatinine 0.94, lactic acid 4.4, total bilirubin 3.4, direct 2, AST 143, ALT 82, alk phos 144, repeat lactic acid came back at 4.1. IMAGING STUDIES: Ultrasound of the gallbladder shows a dilated gallbladder with sludge and tiny stones mild pericholecystic fluid, bile duct is 11 mm. ASSESSMENT/PLAN: Patient is a 73-year-old female with acute cholecystitis with signs of choledocholithiasis. She also has a history of COPD and is oxygen dependent on 3 liters at home. She is scared to undergo intubation two separate times and would like to have her procedures done all at once. However, I explain to her the complications of doing an ERCP had a cholecystectomy at the same time, if the ERCP is done first then I am unable to do the procedure laparoscopically due to the large amounts of air that enter the colon and the small intestine where as if the cholecystectomy was done first and then when the ERCP is done there was high risk of the clips falling off the end of the ducts resulting a leakage. She understands those risks. At this time I do not feel that she needs to undergo either procedure urgently this evening her vitals are stable. Her pain is already slightly improved since admission. I recommend we hold off on everything until tomorrow morning, give her a chance to pass the stones and sludge on her own and see if her symptoms improve with medical management alone. If not we will consult Pulmonology in the morning to get their input on her respiratory status and then discuss possible intervention with her again tomorrow morning if necessary.
[2019-03-03] MEDS ORDERED: LOPR1TAB6 PO (12:40)
[2019-03-03] MEDS ORDERED: AUGM875T28 PO (12:57)
[2019-03-03] MEDS ORDERED: FLAG500T PO (12:57)
--- NOTE | 2019-03-03 13:06 | DS.PDOC ---
Discharge Summary General Date of Admission Feb 26, 2019 at 10:17 Date of Discharge March 03 2019 Attending Physician: CAROL CULVER MD Specialist/Consultants Involve: A Specialist/Consultants Involve , , Dr. Ortiz, Discharge Summary PROCEDURES PERFORMED DURING STAY: [None]. ADMITTING DIAGNOSES: 1. Sepsis secondary to acute cholecystitis/choledocholithiasis 2. Elevated troponins , likely secondary to sepsis DISCHARGE DIAGNOSES: 1. Chronic cholecystitis/choledocholithiasis, status post stent placement via ERCP. COMPLICATIONS/CHIEF COMPLAINT: Cholecystitis,Sepsis. HISTORY OF PRESENT ILLNESS: Per HPI Mrs. Jane is a 73-year-old female who initially presented to the hospital on February 26 with complaints of abdominal pain associated with nausea, vomiting and anorexia. Based on the initial workup. She is diagnosed with sepsis secondary to acute cholecystitis/choledocholithiasis HOSPITAL COURSE: Admitted to PCU, started on IV fluids and antibiotics and evaluated by the pulmonology, general surgery, and gastrology teams. She underwent ERCP with stent placement. She is transferred to the general medical floor and monitored for a few more days. Her WBC count decreased from from a maximum of 19.2-15.0. She was examined on the morning of March 03 at 805 a.m. she was afebrile, reported that her abdominal pain had decreased, and had tolerated a low-fat diet. After releasing with with Kee Vásquez, and Dr. Simpson . She was sent home with scripts for metronidazole, and Augmentin, for 9 more days to complete a total 14 days of treatment with antibiotics. Atenolol was resumed, while Plavix and hydralazine were discontinued. She'll follow-up with Dr. Simpson to discuss having a stress test on an outpatient basis. DISCHARGE MEDICATIONS: Please see below. ALLERGIES: Please see below. PHYSICAL EXAMINATION ON DISCHARGE: VITAL SIGNS: Please see below. GENERAL: Well-nourished, well-developed, no apparent distress HEENT:. Nasal cannula place. Mucous members moist and pink. Extraocular mo vements intact NECK:, Supple CARDIOVASCULAR EXAMINATION:, Regular rate and rhythm, no murmurs, rubs or gallops RESPIRATORY EXAMINATION:. Clear to auscultation bilaterally ABDOMINAL EXAMINATION: Bowel sounds are hypoactive, the abdomen is no longer tender on palpation EXTREMITIES: Range of motion intact 4 extremities NEUROLOGICAL EXAMINATION: CN II to 12 grossly intact, speech is not dysarthric PSYCHIATRIC EXAMINATION: She is alert and oriented to person, place and time and able to understand and follow commands LABORATORY DATA: Please see below. IMAGING: Ultrasound of the gallbladder, chest x-ray, and ERCP were done. Please see permanent medical record for additional details PROGNOSIS: Fair ACTIVITY: [As tolerated]. DIET: Low-fat, low-cholesterol DISCHARGE PLAN:. 1. Follow-up with Cuco Jerry, Calvin Ariza, and Kee. 2. Take metronidazole and Augmentin for 9 more days. 3. Stop the Plavix and hydralazine. DISPOSITION: Home DISCHARGE INSTRUCTIONS: 1. See above. ITEMS TO FOLLOWUP ON ON OUTPATIENT: 1. Need for stress test prior to surgery. 2. Arrangements for elective laparoscopic cholecystectomy DISCHARGE CONDITION: [Stable]. TIME SPENT ON DISCHARGE: Greater than [35] minutes. Vital Signs/I&Os Vital Signs Date Time Temp Pulse Resp B/P (MAP) Pulse Ox O2 Delivery O2 Flow Rate FiO2 03/03/19 10:00 97.9 96 22 136/68 (90) 93 Nasal Cannula 3.0 I&O- Last 24 Hours up to 6 AM 03/03/19 06:00 Intake Total 720 ml Output Total 0 ml Balance 720 ml Laboratory Data Labs 24H Laboratory Tests 2 03/02/19 17:19: Magnesium Level 2.1 03/03/19 07:09: Immature Granulocyte % (Auto) 1.8, White Blood Count 15.0H, Red Blood Count 3.64L, Hemoglobin 11.2L, Hematocrit 34.3L, Mean Corpuscular Volume 94.2, Mean Co rpuscular Hemoglobin 30.8, Mean Corpuscular Hemoglobin Concent 32.7, Red Cell Distribution Width 14.3, Platelet Count 190, Neutrophils (%) (Auto) 78.8H, Lymphocytes (%) (Auto) 12.4L, Monocytes (%) (Auto) 5.8H, Eosinophils (%) (Auto) 0.9, Basophils (%) (Auto) 0.3, Neutrophils # (Auto) 11.8H, Lymphocytes # (Auto) 1.9, Monocytes # (Auto) 0.9H, Eosinophils # (Auto) 0.1, Basophils # (Auto) 0.1, Nucleated Red Blood Cells % (auto) 0.0, Anion Gap 6L, Glomerular Filtration Rate > 60.0, Blood Urea Nitrogen 13, Creatinine 0.66, Sodium Level 138, Potassium Level 3.4L, Chloride Level 103, Carbon Dioxide Level 29, Calcium Level 8.6L CBC/BMP Laboratory Tests 03/03/19 07:09 Red Blood Count 3.64 L, Mean Corpuscular Volume 94.2, Mean Corpuscular Hemoglobin 30.8, Mean Corpuscular Hemoglobin Concent 32.7, Red Cell Distribution Width 14.3, Neutrophils (%) (Auto) 78.8 H, Lymphocytes (%) (Auto) 12.4 L, Monocytes (%) (Auto) 5.8 H, Eosinophils (%) (Auto) 0.9, Basophils (%) (Auto) 0.3, Neutrophils # (Auto) 11.8 H, Lymphocytes # (Auto) 1.9, Monocytes # (Auto) 0.9 H, Eosinophils # (Auto) 0.1, Basophils # (Auto) 0.1, Calcium Level 8.6 L Microbiology Microbiology 02/26/19 Blood Culture - Final, Complete NO GROWTH AFTER 5 DAYS 02/26/19 Blood Culture - Final, Complete NO GROWTH AFTER 5 DAYS Discharge Medications Scheduled Amoxicillin/Potassium Clav (Augmentin 875-125 Tablet) 1 Each Tablet, 1 TAB PO BID Atenolol (Atenolol) 50 Mg Tablet, 50 MG PO DAILY, (Reported) Fluticasone Furoate (Arnuity Ellipta) 200 Mcg Blst.w.dev, 1 PUFF INH QHS, (Reported) Losartan Potassium (Losartan Potassium) 100 Mg Tablet, 100 MG PO DAILY, (Reported) Metronidazole (Flagyl) 500 Mg Tablet, 500 MG PO Q8H FOR 10 DAYS Montelukast Sodium (Montelukast Sodium) 10 Mg Tablet, 10 MG PO DAILY, (Reported) Omeprazole (Omeprazole) 20 Mg Capsule.dr, 20 MG PO DAILY, (Reported) Rosuvastatin Calcium (Rosuvastatin Calcium) 10 Mg Tablet, 10 MG PO DAILY, (Reported) Simethicone (Gas-X) 125 Mg Capsule, 250 MG PO QHS, (Reported) Sucralfate (Sucralfate) 1 Gm Tablet, 1 GRAM PO BID, (Reported) Umeclidinium Brm/Vilanterol Tr (Anoro Ellipta 62.5-25 Mcg INH) 1 Each Blst.w.dev, 1 PUFF INH DAILY, (Reported) Scheduled PRN Acetaminophen (Tylenol Extra Strength) 500 Mg Tablet, 500 MG PO QID PRN for PAIN, (Reported) Oxycodone HCl/Acetaminophen (Oxycodone-Acetaminophen 5-325) 1 Each Tablet, 1 TAB PO Q6H PRN for PAIN, (Reported) Allergies Coded Allergies: aspirin (Verified Allergy, Severe, anaphalaxis, 02/26/19) ciprofloxacin (Unverified Allergy, Mild, itching, 02/28/19) propofol (Verified Allergy, Unknown, 02/26/19) ceftriaxone (Verified Adverse Reaction, Intermediate, gall bladder attack, 02/26/19) CAROL CULVER MD Mar 03, 2019 13:06
[2019-03-03 14:00] VITALS: BP 125/74
== END 2019-03-03 15:15 | disposition home or self-care (01) | DRG 872 ==
LOC: M ED 06:57 → M ED INP 10:17 → M ICU 12:11 → M MSPAV 02-28 11:46
PROVIDERS: ADMIT Internal Medicine; ATTEND Internal Medicine
PROC: 0F798DZ Dilation of Common Bile Duct with Intraluminal Device, Via Natural or Artificial Opening Endoscopic (ICD-10-PCS; 2019-02-27)
PROC: 0FC98ZZ Extirpation of Matter from Common Bile Duct, Via Natural or Artificial Opening Endoscopic (ICD-10-PCS; principal; 2019-02-27 17:00)
DX: A41.9 Sepsis, unspecified organism (principal); I24.8 Other forms of acute ischemic heart disease; J96.11 Chronic respiratory failure with hypoxia; K80.43 Calculus of bile duct with acute cholecystitis with obstruction; Z68.42 Body mass index [BMI] 45.0-49.9, adult; J44.9 Chronic obstructive pulmonary disease, unspecified; I10 Essential (primary) hypertension; G47.33 Obstructive sleep apnea (adult) (pediatric); K59.00 Constipation, unspecified; I65.22 Occlusion and stenosis of left carotid artery; E87.6 Hypokalemia; E66.01 Morbid (severe) obesity due to excess calories; Z87.442 Personal history of urinary calculi; Z87.891 Personal history of nicotine dependence; Z99.81 Dependence on supplemental oxygen; Z79.02 Long term (current) use of antithrombotics/antiplatelets; Z79.899 Other long term (current) drug therapy; Z88.6 Allergy status to analgesic agent; Z88.8 Allergy status to other drugs, medicaments and biological substances; Z88.1 Allergy status to other antibiotic agents

== ENCOUNTER → 2019-04-21 | Outpatient (CLI) | payer MEDICARE, BC, OTHER ==
[~2019-04-21] MED LIST: ACET-897 PO; ANOR1AER INH; ARNU1INH3 INH; ATEN50TA2 PO; AUGM875T28 PO; CLOP75TA2 PO; FLAG500T PO; HYDR25TAB PO; LEVA1TAB2 PO; LOPR1TAB6 PO; LOSA100T50 PO; MONT10TA2 PO; OMEP-218 PO; OXYC1TAB23 PO; PLAV1TAB2 PO; ROSU10TA6 PO; SIME125C4 PO; SUCR1TAB56 PO
[2019-04-21 10:59] LABS: HEMATOCRIT 40.5 % (36.0-47.0); MEAN CORPUSCULAR HEMOGLOBIN 30.5 pg (27.0-33.0); MEAN CORPUSCULAR HGB CONC 32.1 g/dl (32.0-36.5); MEAN CORPUSCULAR VOLUME 95.1 fl (80.0-96.0); PLATELET COUNT, AUTOMATED 223 10^3/uL (150-450); RED BLOOD COUNT 4.26 10^6/uL (4.00-5.40); WHITE BLOOD COUNT 8.8 10^3/uL (4.0-10.0)
[2019-04-21 11:29] LABS: ALBUMIN 3.7 GM/DL (3.2-5.2); ALT/SGPT 18 U/L (12-78); BILIRUBIN,TOTAL 1.3 MG/DL (0.2-1.0); BLOOD UREA NITROGEN 8 MG/DL (7-18); CALCIUM LEVEL 9.5 MG/DL (8.8-10.2); CARBON DIOXIDE LEVEL 28 MEQ/L (21-32); CHLORIDE LEVEL 107 MEQ/L (98-107); CREATININE FOR GFR 0.72 MG/DL (0.55-1.30); GLOMERULAR FILTRATION RATE > 60.0 (>39); GLUCOSE, FASTING 106 MG/DL (70-100); POTASSIUM SERUM 3.7 MEQ/L (3.5-5.1); SODIUM LEVEL 142 MEQ/L (136-145); TOTAL PROTEIN 6.8 GM/DL (6.4-8.2)
== END ==
LOC: M LAB 10:26
PROVIDERS: ATTEND Surgery
DX: K80.50 Calculus of bile duct without cholangitis or cholecystitis without obstruction (principal)

== ENCOUNTER 2019-06-01 08:17 | Day surgery (SDC) | payer MEDICARE, BC, OTHER ==
[~2019-06-01] VITALS: Ht 162.6 cm; Wt 116.3 kg
[~2019-06-01 08:17] MED LIST changes: +LIDOCAINE 2% INJ 100 MG/5 ML SDV (FOR ANES.) As Ordered ONE; +LR 1,000 ML IV ONE; +ONDANSETRON 4MG/2ML VIAL (J2405) As Ordered ONE; +PROPOFOL 200 MG/20 ML VIAL As Ordered ONE; +ROCURONIUM BROMIDE 50 MG/5 ML VIAL As Ordered ONE; +ceFAZolin SOD 1 GM in D5W MINI-BAG PLUS 50 ML IV ONE; +dexameTHASONE 4 MG/ML 1ML VIAL (J1100) As Ordered ONE; +fentaNYL 100 MCG/2 ML INJECTION (J3010) As Ordered ONE
[2019-06-01] MEDS ORDERED: ROCURONIUM BROMIDE 50 MG/5 ML VIAL As Ordered ONE ×2 (08:51→11:52)
[2019-06-01] MEDS ORDERED: SUGAMMADEX SODIUM 500 MG/5 ML VIAL (BRIDION) As Ordered ONE (09:54)
[2019-06-01] MEDS ORDERED: BUPIVACAINE/EPIN 0.25% 30 ML VIAL As Ordered ONE (10:33)
[2019-06-01] MEDS ORDERED: ETOMIDATE INJ 20MG/10ML VIAL As Ordered ONE (10:40)
[2019-06-01] MEDS ORDERED: LevoFLOXacin(LEVAQUIN)500 MG/100 ML BAG (J1956) As Ordered ONE (10:52)
[2019-06-01] MEDS ORDERED: MIDAZOLAM INJ 2 MG/2 ML VIAL (J2250) As Ordered ONE (10:54)
[2019-06-01] MEDS ORDERED: fentaNYL 100 MCG/2 ML INJECTION (J3010) As Ordered ONE ×3 (11:36→14:30)
[2019-06-01] MEDS ORDERED: GLYCOPYRROLATE INJ 0.2 MG/ML 2 ML VIAL As Ordered ONE (12:31)
[2019-06-01] MEDS ORDERED: ACETAMINOPHEN 1000MG 100ML IV BTL (OFIRMEV) (J0131 PER 10MG) As Ordered ONE ×2 (13:21→14:49)
[2019-06-01] MEDS ORDERED: IPRATROPIUM 0.5MG/ALBUTEROL 2.5MG INH SOL UD 3ML (DUONEB)(J7620) NEB PRN (13:30)
[2019-06-01] MEDS ORDERED: ACETAMINOPHEN TAB 650MG DOSE (2X325MG) PO PRN (13:30)
[2019-06-01] MEDS ORDERED: ONDANSETRON 4MG/2ML VIAL (J2405) IV PRN ×2 (13:30→14:00)
[2019-06-01] MEDS ORDERED: MORPHINE 2 MG/ML 1ML VIAL (J2270) IV PRN (13:30)
[2019-06-01] MEDS ORDERED: PERCOCET 5MG/325MG TAB PO PRN (14:00)
[2019-06-01] MEDS ORDERED: NS 1,000 ML IV SCH (14:00)
[2019-06-01] MEDS ORDERED: fentaNYL 100 MCG/2 ML INJECTION (J3010) IV PRN (14:00)
[2019-06-01] MEDS ORDERED: LR 1,000 ML IV SCH (14:00)
[2019-06-01] MEDS ORDERED: LevoFLOXacin IV 500 MG in IV 1 EA IV ONE (14:00)
[2019-06-01] MEDS: IPRATROPIUM 0.5MG/ALBUTEROL 2.5MG INH SOL UD 3ML (DUONEB)(J7620) NEB SCH ×2 (14:00→19:47)
[2019-06-01] MEDS ORDERED: METOCLOPRAMIDE INJ 10MG/2ML VIAL (J2765) IV PRN (14:00)
[2019-06-01] MEDS: PERCOCET 5MG/325MG TAB PO PRN (17:25)
[2019-06-01] MEDS: SUCRALFATE 1 GM TAB PO SCH (20:36)
[2019-06-01 22:00] VITALS: BP 111/69
[2019-06-02] MEDS: PERCOCET 5MG/325MG TAB PO PRN ×3 (00:24→12:30)
[2019-06-02] MEDS: IPRATROPIUM 0.5MG/ALBUTEROL 2.5MG INH SOL UD 3ML (DUONEB)(J7620) NEB SCH ×2 (01:53→08:00)
[2019-06-02 02:00] VITALS: BP 127/74
[2019-06-02 06:00] VITALS: BP 126/70
[2019-06-02 08:22] VITALS: BP 114/66
[2019-06-02] MEDS: SUCRALFATE 1 GM TAB PO SCH (08:36)
[2019-06-02 08:37] VITALS: BP 114/66
[2019-06-02] MEDS ORDERED: OXYC1TAB23 PO (08:48)
[2019-06-02] MEDS ORDERED: ROSUVASTATIN 10 MG TAB (CRESTOR) PO SCH (09:00)
[2019-06-02] MEDS ORDERED: OMEPRAZOLE 20 MG CAP PO SCH (09:00)
[2019-06-02] MEDS ORDERED: LOSARTAN 50 MG TAB PO SCH (09:00)
[2019-06-02] MEDS ORDERED: MONTELUKAST 10 MG TAB PO SCH (09:00)
[2019-06-02] MEDS ORDERED: ATENOLOL 50 MG TAB PO SCH (09:00)
[2019-06-02] MEDS ORDERED: NYSTATIN 100,000 UNITS/GM TOPICAL PWD 15 GM TOP SCH (09:00)
[2019-06-02 10:00] VITALS: BP 115/49
--- NOTE | 2019-06-05 15:21 | RO ---
DATE OF PROCEDURE: 06/01/2019 PREOPERATIVE DIAGNOSIS: History of acute cholecystitis. POSTOPERATIVE DIAGNOSIS: History of acute cholecystitis. PROCEDURE PERFORMED: Laparoscopic cholecystectomy and laparoscopic lysis of adhesions. SURGEON: Dr. Espinoza Rock. CAREER DEVELOPMENT COORDINATOR: Dr. Ousmane Eddy. Dr. Eddy helped retracted and expose the gallbladder. ANESTHESIA: General endotracheal anesthesia. ESTIMATED BLOOD LOSS: Minimal. FLUIDS: Crystalloid. DESCRIPTION OF PROCEDURE: The patient was brought to the operating room and was given general anesthesia. After adequate anesthesia and preoperative antibiotics were given, the patient was prepped and draped in sterile fashion. Next a supraumbilical incision was made with skin knife. Blunt dissection was carried down to fascia. The fascia and peritoneum was entered with a Veress needle, insufflated to 15 mm pressure. Dilating 10 mm trocar was placed after the intra-abdominal pressures reached 15. Next, the epigastric and two lateral trocars were placed and at this time, I was not able to see the gallbladder at all. The omentum and transverse colon were tightly adherent to the edge of the liver. Eventually after significant adhesiolysis in the right upper quadrant taking the omentum as well as the colon off the liver edge and eventually off the medial aspect, the stomach/duodenum in this area as well. Eventually, we got to a portion where the gallbladder was quite contracted and it was grasped and then I was able to retract this up and then perform some dissection on the lateral aspect of this contracted fibrotic inflamed gallbladder. Eventually, the dissection continued distally. However, it was quite difficult to determine where the end of the gallbladder was and the cystic duct originally and thus very slow but meticulous dissection was continued around the midportion of the gallbladder. Then eventually we were able to see a nice hourglass shape towards the end of the gallbladder. Diverting our attention to that area, we made a nice window behind the neck of the gallbladder in this area using peanuts, irrigation/[place] dissector. Then the artery was also well visualized at this time with a cystic duct node could be appreciated in this area. The cystic artery was isolated, was followed up onto the gallbladder wall and this was clipped proximally and distally and transected. The cystic duct itself and the gallbladder was so thick that it did not feel comfortable placing just clips across this alone and taking care to make sure that we were able to see the transition of the gallbladder to the cystic duct area. I then transected the distal portion of the gallbladder neck and then placed an Endoloop around the proximal portion of the cystic duct/gallbladder neck junction with an Endoloop times two. The gallbladder then was taken off the liver. However, it was obvious that this was so tightly adherent and was not able to be easily removed from the gallbladder itself. I took off the anterior portion of this very contracted gallbladder with electrocautery. The posterior aspect was treated with electrocautery/the mucosa and this anterior portion of the gallbladder was sent to the pathologist in an EndoCatch bag. The right upper quadrant was copiously irrigated until clear. The operative field was clean, dry, no bleeding and overall the site was nicely intact. The patient had a little bit of oozing around the cystic duct prior to clipping in this and I had the staff pull some fibrin glue/Tisseel and we used this overlying the cystic duct/cystic artery area. Otherwise no bile leak. No bleeding and the operative field was clean and dry. The scope and trocars were removed under direct visualization. 0 Vicryl was used close the fascia at the umbilicus and all incisions were closed with #4-0 Vicryl. Steri-Strips and a dry sterile dressing was applied. The patient was awakened from her anesthesia, brought to the recovery room awake, alert, hemodynamic stable. Sponge and needle counts correct times two.
== END 2019-06-02 12:45 | disposition home or self-care (01) ==
LOC: M SDC 08:17 → M MSPAV 15:26 → M SDC 06-02 12:45
PROVIDERS: ATTEND Surgery
DX: K82.9 Disease of gallbladder, unspecified (principal); K66.0 Peritoneal adhesions (postprocedural) (postinfection); I12.9 Hypertensive chronic kidney disease with stage 1 through stage 4 chronic kidney disease, or unspecified chronic kidney disease; J44.9 Chronic obstructive pulmonary disease, unspecified; N18.3 Chronic kidney disease, stage 3 (moderate); I25.10 Atherosclerotic heart disease of native coronary artery without angina pectoris; E78.00 Pure hypercholesterolemia, unspecified; I65.22 Occlusion and stenosis of left carotid artery; R06.02 Shortness of breath; M51.36 Other intervertebral disc degeneration, lumbar region; Z88.1 Allergy status to other antibiotic agents; Z88.4 Allergy status to anesthetic agent; Z88.6 Allergy status to analgesic agent; Z88.8 Allergy status to other drugs, medicaments and biological substances; Z79.899 Other long term (current) drug therapy; Z86.718 Personal history of other venous thrombosis and embolism; Z86.711 Personal history of pulmonary embolism; Z87.891 Personal history of nicotine dependence; Z96.1 Presence of intraocular lens; Z98.41 Cataract extraction status, right eye; Z98.42 Cataract extraction status, left eye; Z98.51 Tubal ligation status
CPT/HCPCS: 44180; 47562; 88304; 94640; 96360; 96361; A6024; J0131; J1100; J1956; J2250; J2405; J2765; J3010

== ENCOUNTER 2019-08-09 10:29 | Day surgery (SDC) | payer MEDICARE, BC, OTHER ==
[~2019-08-09] VITALS: Ht 162.6 cm; Wt 113.9 kg
[~2019-08-09 10:29] MED LIST changes: -LIDOCAINE 2% INJ 100 MG/5 ML SDV (FOR ANES.) As Ordered ONE; -LR 1,000 ML IV ONE; +NS 1,000 ML IV ONE; -ONDANSETRON 4MG/2ML VIAL (J2405) As Ordered ONE; -PROPOFOL 200 MG/20 ML VIAL As Ordered ONE; -ROCURONIUM BROMIDE 50 MG/5 ML VIAL As Ordered ONE; -ceFAZolin SOD 1 GM in D5W MINI-BAG PLUS 50 ML IV ONE; -dexameTHASONE 4 MG/ML 1ML VIAL (J1100) As Ordered ONE; -fentaNYL 100 MCG/2 ML INJECTION (J3010) As Ordered ONE
[2019-08-09] MEDS ORDERED: LIDOCAINE 2% INJ 100 MG/5 ML SDV (FOR ANES.) As Ordered ONE (11:55)
[2019-08-09] MEDS ORDERED: PROPOFOL 200 MG/20 ML VIAL As Ordered ONE ×2 (11:55→12:08)
[2019-08-09] MEDS ORDERED: fentaNYL 100 MCG/2 ML INJECTION (J3010) As Ordered ONE (11:57)
--- NOTE | 2019-08-09 12:13 | ROOR ---
Patient Name: Trena Guzmán Procedure Date: 08/09/2019 11:49 AM Date of : 1945 Age: 74 Room: [facility] Gender: Female Note Status: Finalized Procedure: Egd + Stent Removal Indications: Biliary stent removal Providers: Jp Sweet MD Referring MD: JORGE L MCLAUGHLIN MD Requesting Provider: Medicines: Monitored Anesthesia Care Complications: No immediate complications. Procedure: Pre-Anesthesia Assessment: - The heart rate, respiratory rate, oxygen saturations, blood pressure, adequacy of pulmonary ventilation, and response to care were monitored throughout the procedure. The Endoscope was introduced through the mouth, and advanced to the second part of duodenum. The upper GI endoscopy was accomplished without difficulty. The patient tolerated the procedure well. Findings: The Z-line was regular and was found 40 cm from the incisors. No other significant abnormalities were identified in a careful examination of the stomach. A previously placed plastic stent was seen in the area of the papilla. Stent removal was accomplished with a snare. The exam of the duodenum was otherwise normal. Impression: - Z-line regular, 40 cm from the incisors. - Plastic stent in the duodenum. Removed. - The examination was otherwise normal. Recommendation: - Patient has a contact number available for emergencies. The signs and symptoms of potential delayed complications were discussed with the patient. Return to normal activities tomorrow. Written discharge instructions were provided to the patient. - Resume previous diet. - Discharge patient to home. - Continue present medications. - Return to referring physician. - The findings and recommendations were discussed with the patient's family. Jp Sweet MD Jp Sweet MD 08/09/2019 12:13:00 PM Electronically signed by Jp Sweet MD Number of Addenda: 0 Note Initiated On: 08/09/2019 11:49 AM Estimated Blood Loss: Estimated blood loss: none.
[2019-08-09 12:40] VITALS: BP 143/67
== END 2019-08-09 12:50 | disposition home or self-care (01) ==
LOC: M OPP 10:29
PROVIDERS: ATTEND Internal Medicine Gastroenterology
DX: Z46.59 Encounter for fitting and adjustment of other gastrointestinal appliance and device (principal); Z79.899 Other long term (current) drug therapy; Z88.5 Allergy status to narcotic agent; Z88.6 Allergy status to analgesic agent; Z88.8 Allergy status to other drugs, medicaments and biological substances; Z87.891 Personal history of nicotine dependence
CPT/HCPCS: 43247; J3010

== ENCOUNTER → 2019-11-30 | Outpatient (CLI) | payer MEDICARE, BC, OTHER ==
[~2019-11-30] MED LIST changes: -MONT10TA2 PO; +MONT10TA4 PO; -NS 1,000 ML IV ONE; +PROAAER10 INH
== END ==
LOC: M LABSMTC 11:40
PROVIDERS: ATTEND Anesthesiology
DX: Z01.818 Encounter for other preprocedural examination (principal); Z11.59 Encounter for screening for other viral diseases

== ENCOUNTER 2019-12-02 06:15 | Day surgery (SDC) | payer MEDICARE, BC, OTHER ==
[~2019-12-02] VITALS: Ht 162.6 cm; Wt 117.9 kg
[2019-12-02] MEDS ORDERED: MIDAZOLAM INJ 2MG/2ML VIAL (J2250 PER 1MG) As Ordered ONE (06:44)
[2019-12-02] MEDS ORDERED: KETOROLAC 60 MG/2 ML VIAL As Ordered ONE (06:45)
[2019-12-02] MEDS ORDERED: fentaNYL 100 MCG/2 ML INJECTION (J3010) As Ordered ONE (06:45)
[2019-12-02] MEDS ORDERED: ePHEDrine SULFATE 25 MG/5 ML(5MG/ML) SYRINGE As Ordered ONE ×2 (06:45→06:51)
[2019-12-02] MEDS ORDERED: PHENYLephrine HCL 500 MCG/5 ML (100MCG/ML) SYRINGE (J2370) As Ordered ONE ×2 (06:45→06:51)
[2019-12-02] MEDS ORDERED: dexameTHASONE 4 MG/ML 1ML VIAL (J1100 PER 1MG) As Ordered ONE (06:47)
[2019-12-02] MEDS ORDERED: ONDANSETRON 4MG/2ML VIAL As Ordered ONE (06:47)
[2019-12-02] MEDS ORDERED: LIDOCAINE 2% 100MG/5ML SDV (FOR ANES.) As Ordered ONE (06:47)
[2019-12-02] MEDS ORDERED: propofoL 200 MG/20 ML VIAL As Ordered ONE (06:47)
[2019-12-02] MEDS ORDERED: ETOMIDATE INJ 20MG/10ML VIAL As Ordered ONE (07:19)
[2019-12-02] MEDS ORDERED: ACETAMINOPHEN 1000MG 100ML IV BTL (OFIRMEV) (J0131 PER 10MG) As Ordered ONE (08:09)
[2019-12-02] MEDS ORDERED: ONDANSETRON 4MG/2ML VIAL IV PRN (09:00)
[2019-12-02] MEDS ORDERED: LR 1,000 ML IV SCH ×2 (09:00)
[2019-12-02] MEDS ORDERED: fentaNYL 100 MCG/2 ML INJECTION (J3010) IV PRN (09:00)
[2019-12-02] MEDS ORDERED: oxyCODONE 5MG TAB PO PRN (09:00)
[2019-12-02] MEDS: HYDROMORPHONE HCL 0.5 MG/ 0.5 ML SYRINGE (J1170 PER 1) IV PRN ×2 (09:15→09:20)
[2019-12-02] MEDS ORDERED: ACETAMINOPHEN TAB 650MG DOSE (2X325MG) PO PRN (09:30)
[2019-12-02 11:40] VITALS: BP 185/92
--- NOTE | 2019-12-03 08:27 | RO ---
DATE OF PROCEDURE: 12/02/2019 PREPROCEDURE DIAGNOSIS: Postmenopausal bleeding with abnormal ultrasound. POSTPROCEDURE DIAGNOSES: Postmenopausal bleeding with abnormal ultrasound. Left fundal lesion of concerning appearance. Obviously, the pathology is pending. PROCEDURE: Dilation and curettage, hysteroscopy, MyoSure with direct removal of much but not all of that lesion. SURGEON: Dr. Mariela Elizalde MONITOR TECH: None. ANESTHESIA: Laryngeal mask anesthesia (LMA). DESCRIPTION OF PROCEDURE: Trena was brought to the operating room where sufficient LMA anesthesia was induced. She was prepped, draped and positioned in the usual sterile fashion with the anterior aspect of the cervix grasped with a single tooth tenaculum. The patient's exam is somewhat limited by body habitus. We then sounded the uterus to 8 and carefully dilated the cervix and placed the hysteroscope. Visualization of the endometrial cavity showed blood clots in place. With fluid running, we were able to displace some of these. The patient is on Plavix, not today of course. That was held for surgery but that would certainly contribute to a certain friability of the tissues but after we were able to clear the cavity somewhat, we were able to see the right ostia reasonably and then, not quite extending all the way over to the right ostia, there is a sort of atypical lumpy in places and somewhat vascular appearance of a lesion that has a softer texture than one would expect with myoma and certainly less smooth outer contour. This is a very concerning appearing lesion to me. It is not impossible that a degenerating fibroid have this appearance but I certainly feel that pathology is urgently needed on this lesion. A good portion of it was removed with the MyoSure under direct visualization. We then did run into some increasing bleeding and I was not able to find sort of a base under this of normal texture tissue and so I am very concerned for this patient. After we had a good sampling of this tissue and had sampled other areas of the endometrium as well and had removed as much as I felt that we could safely remove. We then ended the procedure with a pass of the curet as well. Estimated blood loss maybe 5 mL. Of course, there was clot present in the endometrial cavity before we started but there was also some scar tissue but that was not the concerning part of the appearance. The photos in this case are truly suboptimal but the lesion obscured the majority of the sort of left cornual, left fundal area and I believe we had good sampling of that. Then we had normal ostia and anatomy along the right side and of course pathology will evaluate all of that. COMPLICATIONS: None. CONDITION AND DISPOSITION: Trena tolerated the procedure well and was recovering in the recovery room in good condition.
== END 2019-12-02 11:45 | disposition home or self-care (01) ==
LOC: M SDC 06:15
PROVIDERS: ATTEND Obstetrics & Gynecology
DX: C54.1 Malignant neoplasm of endometrium (principal); R93.5 Abnormal findings on diagnostic imaging of other abdominal regions, including retroperitoneum; I11.9 Hypertensive heart disease without heart failure; E78.00 Pure hypercholesterolemia, unspecified; I65.29 Occlusion and stenosis of unspecified carotid artery; Z86.718 Personal history of other venous thrombosis and embolism; Z86.711 Personal history of pulmonary embolism; M54.5 Low back pain; J44.9 Chronic obstructive pulmonary disease, unspecified; Z99.81 Dependence on supplemental oxygen; G47.30 Sleep apnea, unspecified; N39.3 Stress incontinence (female) (male); Z87.442 Personal history of urinary calculi; Z87.891 Personal history of nicotine dependence; Z88.6 Allergy status to analgesic agent; Z88.5 Allergy status to narcotic agent; Z79.899 Other long term (current) drug therapy; Z79.51 Long term (current) use of inhaled steroids; Z79.02 Long term (current) use of antithrombotics/antiplatelets
CPT/HCPCS: 58558; 88305; J0131; J1100; J1170; J1885; J2250; J2370; J2405; J3010